=== PATIENT | female | born 1945 | race Caucasian/White ===

== ENCOUNTER 2016-11-28 13:24 | Inpatient (IN) | payer MEDICARE ==
[2016-11-28] MEDS ORDERED: Aspirin Low Dose CHEW TAB* 81 MG PO ONE (14:31)
--- NOTE | 2016-11-28 14:56 | RAD ---
HISTORY: Fall, weakness COMPARISONS: December 15, 2015 VIEWS:1: Single frontal portable view of the chest at 2:35 PM FINDINGS: LINES AND TUBES: A left-sided pacemaker is noted CARDIOMEDIASTINAL SILHOUETTE: The cardiomediastinal silhouette is normal for portable technique. PLEURA: The costophrenic angles are sharp. No pleural abnormalities are noted. LUNG PARENCHYMA: There is hyperinflation. ABDOMEN: The upper abdomen is clear. There is no subphrenic gas. BONES AND SOFT TISSUES: No bone or soft tissue abnormalities are noted. IMPRESSION: COPD. NO ACTIVE CARDIOPULMONARY DISEASE.
[2016-11-28 15:00] LABS: Hematocrit 43 % (35-47); Hemoglobin 14.8 g/dl (12.0-16.0); Mean Corpuscular HGB Conc 34 g/dl (31-36); Mean Corpuscular Hemoglobin 33 pg (27-31); Mean Corpuscular Volume 96 fL (80-97); Mean Platelet Volume 7 um3 (7.4-10.4); Red Blood Count 4.52 10^6/ul (4.0-5.4); Red Cell Distribution Width 16 % (10.5-15); White Blood Count 11.4 10^3/ul (3.5-10.8)
[2016-11-28 15:18] LABS: ALT 20 U/L (7-52); AST 50 U/L (13-39); Albumin 3.4 g/dL (3.2-5.2); Alkaline Phosphatase 66 U/L (34-104); Anion Gap 16 mmol/L (2-11); BUN/Creatinine Ratio 22.3 (8-20); Blood Urea Nitrogen 25 mg/dL (6-24); CO2 Carbon Dioxide 20 mmol/L (22-32); Calcium 9.2 mg/dL (8.6-10.3); Chloride 100 mmol/L (101-111); EGFR African American 61.3 (>60); EGFR Non-African American 47.7 (>60); Globulin 3.5 g/dL (2-4); Glucose 98 mg/dL (70-100); Potassium 3.2 mmol/L (3.5-5.0); Sodium 136 mmol/L (133-145); Total Protein 6.9 g/dL (6.4-8.9); Troponin I 0.01 ng/mL (<0.04)
--- NOTE | 2016-11-28 15:35 | RAD ---
HISTORY: Fall, renal cancer COMPARISONS: MRI dated March 08, 2015 TECHNIQUE: Multiple contiguous axial CT scans were obtained of the head without intravenous contrast. FINDINGS: HEMORRHAGE/INFARCT: There is no hemorrhage or acute infarct. MASSES/SHIFT: There is no mass or shift. EXTRA-AXIAL SPACES: There are no extra-axial fluid collections. SULCI AND VENTRICLES: The sulci and ventricles are normal in size and position for the patient's stated age. CEREBRUM: There is hypoattenuation of the periventricular and subcortical white matter. BRAINSTEM: There are no focal parenchymal abnormalities. CEREBELLUM: There are no focal parenchymal abnormalities. VESSELS: The vessels are grossly normal. PARANASAL SINUSES: The paranasal sinuses are clear. ORBITS: The orbits are unremarkable. BONES AND SOFT TISSUE: No bone or soft tissue abnormalities are noted. OTHER: None IMPRESSION: NO ACUTE INTRACRANIAL PATHOLOGY. CHRONIC SMALL VESSEL ISCHEMIC CHANGES.
[2016-11-28 15:48] LABS: TSH (Thyroid Stimulating Horm) 2.07 mcIU/mL (0.34-5.60)
[2016-11-28 15:55] LABS: Free T4 1.45 ng/dL (0.61-1.12)
[2016-11-28 16:27] LABS: Venous Bicarbonate HCO3 22.6 mmol/L (24-28)
[2016-11-28] MEDS ORDERED: NS 0.9% 1000 ML* 1,000 ML IV ONE (16:28)
[2016-11-28 16:30] LABS: Creatine Kinase 625 U/L (10-223)
[2016-11-28] MEDS ORDERED: NS 0.9% 1000 ML* 1,000 ML IV SCH (17:15)
[2016-11-28 17:20] LABS: Alcohol < 10 mg/dL (<10)
[2016-11-28] MEDS ORDERED: Gabapentin CAP(*) 100 MG PO PRN (17:32)
[2016-11-28 17:59] LABS: Urine Bacteria Absent (Absent); Urine Bilirubin Negative (Negative); Urine Glucose Negative (Negative); Urine Nitrite Negative (Negative)
[2016-11-28] MEDS: NS 0.9% w/ 40 Meq KCL 1000 ML* 1,000 ML IV SCH (19:34)
[2016-11-28] MEDS: oxyCODONE TAB* 5 MG TAB PO PRN (19:58)
[2016-11-29] MEDS: oxyCODONE TAB* 5 MG TAB PO PRN ×2 (03:03→19:03)
[2016-11-29 05:21] LABS: Hematocrit 42 % (35-47); Hemoglobin 13.9 g/dl (12.0-16.0); Mean Corpuscular HGB Conc 33 g/dl (31-36); Mean Corpuscular Hemoglobin 32 pg (27-31); Mean Corpuscular Volume 96 fL (80-97); Mean Platelet Volume 7 um3 (7.4-10.4); Red Blood Count 4.33 10^6/ul (4.0-5.4); Red Cell Distribution Width 16 % (10.5-15)
[2016-11-29 05:38] LABS: BUN/Creatinine Ratio 17.6 (8-20); Calcium 8.5 mg/dL (8.6-10.3); EGFR African American 77.9 (>60); EGFR Non-African American 60.6 (>60); Potassium 3.2 mmol/L (3.5-5.0); Total Bilirubin 0.9 mg/dL (0.2-1.0)
[2016-11-29] MEDS: NS 0.9% w/ 40 Meq KCL 1000 ML* 1,000 ML IV SCH ×2 (06:50→19:56)
[2016-11-29] MEDS: Levothyroxine TAB* 100 MCG TAB PO SCH (06:50)
[2016-11-29] MEDS: amLODIPine TAB* 5 MG PO SCH (09:16)
[2016-11-29] MEDS: Hydroxychloroquine TAB* 200 MG PO SCH (09:16)
[2016-11-29] MEDS: Diltiazem CD CAP* 120 MG PO SCH (09:16)
[2016-11-29] MEDS: Acetaminophen TAB* 325 MG PO PRN (09:16)
--- NOTE | 2016-11-29 09:23 | PN ---
Progress Note - Progress Note Date of Service: 11/29/16 SOAP: Subjective: left rib pain. reports that she has been falling a lot lately and she is not sure why. globally weak. also getting more confused. reports that she fell the night prior to coming in and could not get up and laid there until her nephew came the next afternoon. short of breath for an undetermined amount of time. Objective: Vital Signs Temp Pulse Resp BP Pulse Ox 97.8 F 90 18 135/54 93 11/29/16 04:18 11/29/16 04:18 11/29/16 07:38 11/29/16 04:18 11/29/16 04:25 disheveled appearing in nad poor dentition crackles left base ttp over left posterior and anterior ribs soft ttp luq no le edema globally weak but nonfocal, did not ambulate oriented after significant tries, initially said may 1916 but was able to correct self to november 2016 scattered escoriations from falls Laboratory Results - last 24 hr 11/28/16 11/28/16 11/28/16 14:50 14:50 14:50 WBC 11.4 H RBC 4.52 Hgb 14.8 Hct 43 MCV 96 MCH 33 H MCHC 34 RDW 16 H Plt Count 328 MPV 7 L Neut % (Auto) 87.0 H Lymph % (Auto) 6.2 L [place] % (Auto) 6.1 Eos % (Auto) 0.2 Baso % (Auto) 0.5 Absolute Neuts (auto) 9.9 H Absolute Lymphs (auto) 0.7 L Absolute Monos (auto) 0.7 Absolute Eos (auto) 0 Absolute Basos (auto) 0.1 Absolute Nucleated RBC 0.01 Nucleated RBC % 0.1 VBG pH VBG pCO2 VBG pO2 VBG HCO3 VBG O2 Saturation VBG Base Excess Sodium 136 Potassium 3.2 L Chloride 100 L Carbon Dioxide 20 L Anion Gap 16 H BUN 25 H Creatinine 1.12 H Est GFR ( Amer) 61.3 Est GFR (Non-Af Amer) 47.7 BUN/Creatinine Ratio 22.3 H Glucose 98 Lactic Acid 0.9 Calcium 9.2 Magnesium 2.0 Total Bilirubin 1.00 AST 50 H ALT 20 Alkaline Phosphatase 66 Ammonia Total Creatine Kinase 625 H Troponin I 0.01 Total Protein 6.9 Albumin 3.4 Globulin 3.5 Albumin/Globulin Ratio 1.0 TSH 2.07 Free T4 1.45 H Urine Color Urine Appearance Urine pH Ur Specific [place] Urine Protein Urine Ketones Urine Blood Urine Nitrate Urine Bilirubin Urine Urobilinogen Ur Leukocyte Esterase Urine WBC (Auto) Urine RBC (Auto) Ur Squamous Epith Cells Urine Bacteria Hyaline Casts Urine Glucose Serum Alcohol < 10 11/28/16 11/28/16 11/28/16 16:16 16:25 17:08 WBC RBC Hgb Hct MCV MCH MCHC RDW Plt Count MPV Neut % (Auto) Lymph % (Auto) [place] % (Auto) Eos % (Auto) Baso % (Auto) Absolute Neuts (auto) Absolute Lymphs (auto) Absolute Monos (auto) Absolute Eos (auto) Absolute Basos (auto) Absolute Nucleated RBC Nucleated RBC % VBG pH 7.41 VBG pCO2 35 L VBG pO2 34 L VBG HCO3 22.6 L VBG O2 Saturation 69.3 L VBG Base Excess -1.9 L Sodium Potassium Chloride Carbon Dioxide Anion Gap BUN Creatinine Est GFR ( Amer) Est GFR (Non-Af Amer) BUN/Creatinine Ratio Glucose Lactic Acid Calcium Magnesium Total Bilirubin AST ALT Alkaline Phosphatase Ammonia 29 Total Creatine Kinase Troponin I Total Protein Albumin Globulin Albumin/Globulin Ratio TSH Free T4 Urine Color Yellow Urine Appearance Clear Urine pH 5.0 Ur Specific [place] 1.013 Urine Protein 2+(100 mg/dl) H Urine Ketones 1+ H Urine Blood 1+ H Urine Nitrate Negative Urine Bilirubin Negative Urine Urobilinogen Negative Ur Leukocyte Esterase Negative Urine WBC (Auto) Trace(0-5/hpf) Urine RBC (Auto) 1+(3-5/hpf) H Ur Squamous Epith Cells Present H Urine Bacteria Absent Hyaline Casts Present H Urine Glucose Negative Serum Alcohol 11/28/16 11/29/16 11/29/16 17:31 05:12 05:12 WBC 11.0 H RBC 4.33 Hgb 13.9 Hct 42 MCV 96 MCH 32 H MCHC 33 RDW 16 H Plt Count 307 MPV 7 L Neut % (Auto) 79.1 Lymph % (Auto) 9.6 L [place] % (Auto) 9.7 H Eos % (Auto) 0.6 Baso % (Auto) 1.0 Absolute Neuts (auto) 8.7 H Absolute Lymphs (auto) 1.1 Absolute Monos (auto) 1.1 H Absolute Eos (auto) 0.1 Absolute Basos (auto) 0.1 Absolute Nucleated RBC 0 Nucleated RBC % 0 VBG pH VBG pCO2 VBG pO2 VBG HCO3 VBG O2 Saturation VBG Base Excess Sodium 136 Potassium 3.2 L Chloride 106 Carbon Dioxide 22 Anion Gap 8 BUN 16 Creatinine 0.91 Est GFR ( Amer) 77.9 Est GFR (Non-Af Amer) 60.6 BUN/Creatinine Ratio 17.6 Glucose 100 Lactic Acid Calcium 8.5 L Magnesium Total Bilirubin 0.90 AST 42 H ALT 19 Alkaline Phosphatase 57 Ammonia Total Creatine Kinase Troponin I 0.01 Total Protein 6.0 L Albumin 3.0 L Globulin 3.0 Albumin/Globulin Ratio 1.0 TSH Free T4 Urine Color Urine Appearance Urine pH Ur Specific [place] Urine Protein Urine Ketones Urine Blood Urine Nitrate Urine Bilirubin Urine Urobilinogen Ur Leukocyte Esterase Urine WBC (Auto) Urine RBC (Auto) Ur Squamous Epith Cells Urine Bacteria Hyaline Casts Urine Glucose Serum Alcohol Acetaminophen (Tylenol Tab*) 650 mg PO Q6H PRN PRN Reason: headache/fever Last Admin: 11/29/16 09:16 Dose: 650 mg Amlodipine Besylate (Norvasc Tab*) 2.5 mg PO DAILY [facility] Last Admin: 11/29/16 09:16 Dose: 2.5 mg Diltiazem HCl (Cardizem Cd Cap*) 120 mg PO DAILY [facility] Last Admin: 11/29/16 09:16 Dose: 120 mg Gabapentin (Neurontin Cap(*)) 100 mg PO TID PRN PRN Reason: PAIN Hydroxychloroquine Sulfate (Plaquenil Tab*) 200 mg PO DAILY [facility] Last Admin: 11/29/16 09:16 Dose: 200 mg Potassium Chloride/Sodium Chloride (Ns 0.9% W/ 40 Meq Kcl 1000 Ml*) 1,000 mls @ 100 mls/hr IV PER RATE [facility] Last Admin: 11/29/16 06:50 Dose: 100 mls/hr Levothyroxine Sodium (Synthroid Tab*) 100 mcg PO 0600 [facility] Last Admin: 11/29/16 06:50 Dose: 100 mcg Oxycodone HCl (Roxycodone Tab*) 5 mg PO Q6H PRN PRN Reason: PAIN Last Admin: 11/29/16 03:03 Dose: 5 mg Assessment: 71 yo F w metastatic RCC, apparently due to start nivolumab in the near future, with increase in recent falls of unclear etiology, globally weak. On exam she has crackles at the left base and I suspect may have a PNA +/- rib fracture from her falls. Plan: Falls/AMS: rule out ELEMENTARY SCHOOL TEACHER'S AIDE involvement of tumor with CT with and without--recent PPM, not sure if MRI compatible (will need to premed) PT consult tele to rule out arrhythmia, will discuss with cards if PPM needs to be interrogated (apparently placed over the summer in [place] for falls) LLL crackles, rib pain, fall, sob: CT chest noncontrast now no abx for now hypokalemia: replete IV, mag ok dnr add lovenox dvt prophylaxis
[2016-11-29] MEDS: Enoxaparin(*) 30 MG/0.3 ML SYR SUBCUT SCH (11:12)
[2016-11-29] MEDS ORDERED: diPHENhydraMINE PO* 50 MG PO ONE (11:14)
[2016-11-29] MEDS ORDERED: predniSONE TAB* 5 MG PO SCH (12:00)
--- NOTE | 2016-11-29 15:01 | RAD ---
INDICATION: Evaluate for left-sided pneumonia COMPARISON: CT chest/abdomen/pelvis October 22, 2016 TECHNIQUE: Noncontrast axial source images were obtained from the thoracic inlet to the hemidiaphragms. Coronal and sagittal reconstructed images were acquired. The visualized neck to include the thyroid appear normal. Chest wall: There are no acute abnormalities of the bony thorax or chest wall. There is a right breast mass which has been described previously. There is osteopenia with kyphosis There is pacemaker artifact. There is no supraclavicular, infraclavicular, or axillary lymphadenopathy. Lungs : There are underlying emphysematous changes. There is new bibasilar atelectasis. No focal parenchymal masses are seen. Cardiomediastinal structures: The heart is normal in size. There is no pericardial effusion. There is no evidence of aortic aneurysm or dissection. There are aortic intimal calcifications and there is mild aortic ectasia. The pulmonary vessels appear normal. There is subcarinal and left infrahilar adenopathy better evaluated on the earlier contrast-enhanced examination. There is now believed to be an appreciable interval change. The esophagus appears normal. Pleura : New small, bilateral pleural effusions left greater than right. Other: Limited views the upper abdomen demonstrate a left renal mass and a large hepatic cyst. There is extensive retroperitoneal lymphadenopathy. All findings have been recently documented. IMPRESSION: THERE IS NEW BIBASILAR AIRSPACE DISEASE, LIKELY ATELECTASIS WITH NEW BILATERAL PLEURAL EFFUSIONS LEFT GREATER THAN RIGHT. ADDITIONAL FINDINGS INCLUDE INCIDENTAL ADENOPATHY, RETROPERITONEAL ADENOPATHY, AND A LEFT RENAL MASS ALSO DESCRIBED ON RECENT CT OF THE CHEST/ABDOMEN/PELVIS.
--- NOTE | 2016-11-29 21:28 | CONS ---
CC: Dr. Loni Burgess MD * CARDIOLOGY CONSULT REPORT: DATE OF CONSULT: 11/29/16 HISTORY OF PRESENT ILLNESS: I was asked by Dr. Burgess to see this 71-year- old female patient who was hospitalized after she has been falling a lot. The patient was in [place] back in July, I do have the notes from there. At that time, she was diagnosed with sick sinus syndrome and she had significant hypertension. She underwent permanent pacemaker implantation then. She had an echo done that showed her EF to be 65% and mild pulmonary hypertension at 40 mmHg, mild to moderate mitral insufficiency, mild to moderate tricuspid insufficiency. Cardiology consult was further requested to evaluate if her pacemaker is still functioning normally. Herself, she gets short of breath, which is not new. She gets no active chest pain, no orthopnea, no history of myocardial infarction, no history of coronary artery disease appreciated. She had no nausea, no vomiting, no hematochezia, no abdominal pain, and no syncope. Then, in July, she had a CT that showed her to have a small chronic lacunar infarct in the left basal ganglia. No evidence of acute CVA appreciated. During this hospitalization, she was evaluated actually by a brain CT that was reported to have not used intracranial pathology. She had a chest x-ray that was reported to have COPD, no active cardiopulmonary disease. She gets no fever , no chills, no skin rash, no tremors, no hematochezia, no nausea, no vomiting is appreciated. Her review of all other systems essentially is negative. PAST MEDICAL HISTORY: As above including history of systemic arterial hypertension, which she is on medical treatment for that. She also had some rib pain, although the chest x-ray that was just done recently did not show that. She does have CT chest that was done today and the CT chest reported the patient to have new bibasilar air space disease, likely atelectasis with new bilateral pleural effusion, left greater than the right. There is also retroperitoneal adenopathy and left renal mass as also evaluated. ALLERGIES: She had multiple allergies including IODINATED DIAGNOSTIC AGENTS and CT CONTRAST. MEDICATIONS: Her medications as an inpatient include: 1. Tylenol 650 mg p.o. q.6 hours. 2. Amlodipine 2.5 mg daily. 3. Diltiazem 120 mg daily. 4. Lovenox 30 mg subcu q.24 hours. 5. Plaquenil 200 mg daily. 6. Synthroid 100 mcg daily. 7. Potassium supplements. 8. Prednisone 50 mg p.o. 3 times daily. SOCIAL HISTORY: She gives no history of significant alcohol drinking or drug abuse. PHYSICAL EXAMINATION: On exam, she is awake, alert. She had some mild shortness of breath. Her vitals include a blood pressure of 128/47, pulse is 79 , temperature 97.6. Head and neck exam: Normocephalic, atraumatic. Head, ear , nose, and throat essentially benign. Neck: Supple. JVP is not elevated. No carotid bruits. Chest: Diminished air entry at the bases with some rhonchi bilaterally. Heart: Normal, S1 and S2. No added sounds, no gallops, no rubs. Abdomen: Benign positive bowel sounds. Extremities: No edema, no cyanosis, no clubbing. Skin exam: Normal. Psych: Normal affect and mood. ESTHETICIAN PERMANENT MAKEUP ARTIST: No focal deficits appreciated. DIAGNOSTIC STUDIES/LAB DATA: Her labs showed white blood cell of 11, hemoglobin 13.9, hematocrit 42, and platelets 307. Her sodium 136, potassium is low at 3.2, chloride 106, total CO2 22, BUN 16, creatinine 0.91. Troponin 0.01 and the second one is 0.01. Thyroid, TSH 2.07, free T4 1.45. Her urine showed a +2 protein, +1 blood. There are rbc's. The EKG from today was reported to have sinus rhythm. There is borderline upper limit normal QTc and nonspecific T abnormality. The patient had her pacemaker interrogated today that showed the patient to have a pacer that is functioning normally and sensing the atrium and sensing the ventricle. It is an AA DDD mode with a lower rate of 60, upper rate of 130, normal impendence, normal sensing, good threshold. It is sensing the atrium in 91% of the time, sensing the ventricle in 91% of the time. IMPRESSION: The patient is a 71-year-old female patient with a history of sick sinus syndrome and hospitalization in [place] with multiple falls and syncope and at that time, she underwent permanent pacemaker implantation, who also at that time had an echocardiogram that showed her to have a normal left ventricle systolic function, EF 65%, mild pulmonary hypertension, mild to moderate mitral insufficiency, and mild to moderate tricuspid insufficiency. She has now been hospitalized with recurrent falls of unclear etiology. Her CT scan of the brain did not show any significant intracranial pathology. Her CT of the chest showed her kidney masses and bilateral atelectasis and bilateral pleural effusion. She does have a history of bilateral breast masses and metastatic renal cell cancer in the past as well. It is not immediately clear of the history of multiple falls. The pacemaker interrogation showed the pacemaker to be functioning normally. At the present time, I advised continued medical treatment as per your recommendations. Her echocardiogram is relatively recent from July of this year that showed normal left ventricular systolic function and mitral insufficiency, which is only mild to moderate and just mild pulmonary hypertension. Continue hydration, very important to keep her potassium at least 4.2 or more as you are already doing, continue other medical treatment and management as you are already doing. Thank you very much for asking us to participate in the care of this patient. [id number]/JENNIFER #: [id number] WENDY
[2016-11-29] MEDS: predniSONE TAB* 50 MG PO SCH (22:16)
[2016-11-30] MEDS ORDERED: Albuterol/Ipratropium NEB.SOL* Albuterol 2.5 MG/Ipratropium 0.5 MG 3 ML ONE (00:08)
[2016-11-30] MEDS: Albuterol/Ipratropium NEB.SOL* Albuterol 2.5 MG/Ipratropium 0.5 MG 3 ML INH PRN ×4 (00:09→23:52)
[2016-11-30] MEDS: predniSONE TAB* 50 MG PO SCH ×2 (04:10→10:08)
[2016-11-30 04:59] LABS: Hematocrit 40 % (35-47); Hemoglobin 13.1 g/dl (12.0-16.0); Mean Corpuscular HGB Conc 33 g/dl (31-36); Mean Corpuscular Hemoglobin 32 pg (27-31); Mean Corpuscular Volume 97 fL (80-97); Mean Platelet Volume 7 um3 (7.4-10.4); Red Blood Count 4.11 10^6/ul (4.0-5.4); Red Cell Distribution Width 16 % (10.5-15); White Blood Count 7.9 10^3/ul (3.5-10.8)
[2016-11-30 05:17] LABS: Calcium 7.7 mg/dL (8.6-10.3); EGFR African American 97.4 (>60); EGFR Non-African American 75.7 (>60); Magnesium 1.6 mg/dL (1.9-2.7); Potassium 4.2 mmol/L (3.5-5.0)
[2016-11-30] MEDS: Levothyroxine TAB* 100 MCG TAB PO SCH (05:20)
[2016-11-30] MEDS: NS 0.9% w/ 40 Meq KCL 1000 ML* 1,000 ML IV SCH ×2 (06:04→20:30)
[2016-11-30] MEDS ORDERED: Iodixanol* (CONTRAST) 320 MG/ML 100 ML SDV IV ONE (08:41)
[2016-11-30] MEDS ORDERED: diPHENhydraMINE PO* 50 MG PO ONE (10:00)
[2016-11-30] MEDS: Hydroxychloroquine TAB* 200 MG PO SCH (10:06)
[2016-11-30] MEDS: Diltiazem CD CAP* 120 MG PO SCH (10:06)
[2016-11-30] MEDS: amLODIPine TAB* 5 MG PO SCH (10:06)
[2016-11-30] MEDS: Enoxaparin(*) 30 MG/0.3 ML SYR SUBCUT SCH (10:06)
--- NOTE | 2016-11-30 10:12 | PN ---
Progress Note - Progress Note Date of Service: 11/30/16 SOAP: Subjective: []Reports SOB today, difficulty with minimal exertion. Afraid to get up because of breathing. Left chest pain, maybe better. Live with step son and has been independent of ADLs, makes his meals. Falls have been for 2-3 months. Not eating well. Says she is not working with PT yet. Acetaminophen (Tylenol Tab*) 650 mg PO Q6H PRN PRN Reason: headache/fever Last Admin: 11/29/16 09:16 Dose: 650 mg Albuterol/Ipratropium (Duoneb (Albuterol 2.5 Mg/Ipratropium 0.5 Mg)) 1 neb INH Q4H PRN PRN Reason: SOB/WHEEZING Last Admin: 11/30/16 08:58 Dose: 1 neb Amlodipine Besylate (Norvasc Tab*) 2.5 mg PO DAILY [facility] Last Admin: 11/29/16 09:16 Dose: 2.5 mg Diltiazem HCl (Cardizem Cd Cap*) 120 mg PO DAILY [facility] Last Admin: 11/29/16 09:16 Dose: 120 mg Enoxaparin Sodium (Lovenox(*)) 30 mg SUBCUT Q24H [facility] Last Admin: 11/29/16 11:12 Dose: 30 mg Gabapentin (Neurontin Cap(*)) 100 mg PO TID PRN PRN Reason: PAIN Hydroxychloroquine Sulfate (Plaquenil Tab*) 200 mg PO DAILY [facility] Last Admin: 11/29/16 09:16 Dose: 200 mg Potassium Chloride/Sodium Chloride (Ns 0.9% W/ 40 Meq Kcl 1000 Ml*) 1,000 mls @ 100 mls/hr IV PER RATE [facility] Last Admin: 11/30/16 06:04 Dose: 100 mls/hr Levothyroxine Sodium (Synthroid Tab*) 100 mcg PO 0600 [facility] Last Admin: 11/30/16 05:20 Dose: 100 mcg Oxycodone HCl (Roxycodone Tab*) 5 mg PO Q6H PRN PRN Reason: PAIN Last Admin: 11/29/16 19:03 Dose: 5 mg Objective: [] Vital Signs Temp Pulse Resp BP Pulse Ox 97.4 F 74 18 122/54 99 11/30/16 03:20 11/30/16 09:00 11/30/16 09:00 11/30/16 03:20 11/30/16 09:00 HEENT- Frail appearing. No thrush, poor dentition. Decreased BS, no crackles RRR S1S2 Kyphosis +BS BL BRUCE Oriented x 3 and conversing today. moved legs and arms but did not do full neuro exam or walk her. Laboratory Results - last 24 hr 11/30/16 11/30/16 04:28 04:28 WBC 7.9 RBC 4.11 Hgb 13.1 Hct 40 MCV 97 MCH 32 H MCHC 33 RDW 16 H Plt Count 256 MPV 7 L Neut % (Auto) 95.6 H Lymph % (Auto) 3.4 L [place] % (Auto) 0.7 L Eos % (Auto) 0 Baso % (Auto) 0.3 Absolute Neuts (auto) 7.6 Absolute Lymphs (auto) 0.3 L Absolute Monos (auto) 0.1 Absolute Eos (auto) 0 Absolute Basos (auto) 0 Absolute Nucleated RBC 0 Nucleated RBC % 0 Sodium 135 Potassium 4.2 Chloride 111 Carbon Dioxide 18 L Anion Gap 6 BUN 12 Creatinine 0.75 Est GFR ( Amer) 97.4 Est GFR (Non-Af Amer) 75.7 BUN/Creatinine Ratio 16.0 Glucose 174 H Calcium 7.7 L Magnesium 1.6 L Assessment: 71 yo F w metastatic RCC, apparently due to start nivolumab in the near future, with increase in recent falls of unclear etiology, globally weak and increased SOB Plan: 1. Falls/AMS. Unclear in neurological process or second to SOB and muscle weakness. MRI of brain today. 2. PT evaluation appreciated. Rolling walker on discharge and walk 3x/day in hospital. 3. SOB. PPM appears fine and nothing on telemetry, primary lung disease is possible, side effect of pazopanib (stopped). - Advir 50/250 bid - Stop Norvasc 3. Rib pain seems a little better, CT negative. Follow. 4. Hypokalemia. IV Mag today 5. DNR 6. Full admit today
--- NOTE | 2016-11-30 11:56 | RAD ---
HISTORY: Altered mental status COMPARISONS: Head CT dated November 28, 2016 TECHNIQUE: Multiple contiguous axial CT scans were obtained of the head with and without intravenous contrast. FINDINGS: HEMORRHAGE/INFARCT: There is no hemorrhage or acute infarct. MASSES/SHIFT: There is no mass or shift. EXTRA-AXIAL SPACES: There are no extra-axial fluid collections. SULCI AND VENTRICLES: The sulci and ventricles are normal in size and position for the patient's stated age. CEREBRUM: There is hypoattenuation of the periventricular and subcortical white matter. There is no abnormal enhancement. BRAINSTEM: There are no focal parenchymal abnormalities. CEREBELLUM: There are no focal parenchymal abnormalities. VESSELS: The vessels are grossly normal. PARANASAL SINUSES: The paranasal sinuses are clear. ORBITS: The orbits are unremarkable. BONES AND SOFT TISSUE: No bone or soft tissue abnormalities are noted. OTHER: None IMPRESSION: 1. NO ACUTE INTRACRANIAL PATHOLOGY. 2. CHRONIC SMALL VESSEL ISCHEMIC CHANGES. 3. NO ABNORMAL ENHANCEMENT, VASOGENIC EDEMA, OR SPACE-OCCUPYING LESION TO SUGGEST METASTATIC DISEASE TO THE BRAIN.
[2016-11-30] MEDS: Mometasone/Formoter 200/5 MDI INH SCH (19:27)
[2016-11-30] MEDS: oxyCODONE TAB* 5 MG TAB PO PRN (20:30)
[2016-12-01] MEDS: oxyCODONE TAB* 5 MG TAB PO PRN ×2 (01:38→19:20)
[2016-12-01] MEDS: Albuterol/Ipratropium NEB.SOL* Albuterol 2.5 MG/Ipratropium 0.5 MG 3 ML INH PRN ×3 (04:24→19:36)
[2016-12-01] MEDS: Levothyroxine TAB* 100 MCG TAB PO SCH (05:54)
[2016-12-01] MEDS: NS 0.9% w/ 40 Meq KCL 1000 ML* 1,000 ML IV SCH (06:40)
[2016-12-01] MEDS: Mometasone/Formoter 200/5 MDI INH SCH ×2 (07:50→20:21)
--- NOTE | 2016-12-01 08:14 | RAD ---
HISTORY: Dyspnea COMPARISONS: November 28, 2016 VIEWS:1: Single frontal portable view of the chest at 6 9:00 AM FINDINGS: LINES AND TUBES: A left-sided pacemaker is noted CARDIOMEDIASTINAL SILHOUETTE: The cardiomediastinal silhouette is normal for portable technique. PLEURA: The costophrenic angles are sharp. No pleural abnormalities are noted. LUNG PARENCHYMA: There is a diffuse reticular pattern with indistinct pulmonary vessels. There is hyperinflation. ABDOMEN: The upper abdomen is clear. There is no subphrenic gas. BONES AND SOFT TISSUES: No bone or soft tissue abnormalities are noted. IMPRESSION: 1. COPD. 2. PULMONARY INTERSTITIAL EDEMA.
[2016-12-01] MEDS: Hydroxychloroquine TAB* 200 MG PO SCH (09:31)
[2016-12-01] MEDS: Diltiazem CD CAP* 120 MG PO SCH (09:31)
[2016-12-01] MEDS: Enoxaparin(*) 30 MG/0.3 ML SYR SUBCUT SCH (09:32)
[2016-12-01 09:45] LABS: Hematocrit 40 % (35-47); Hemoglobin 12.7 g/dl (12.0-16.0); Mean Corpuscular HGB Conc 32 g/dl (31-36); Mean Corpuscular Hemoglobin 31 pg (27-31); Mean Corpuscular Volume 98 fL (80-97); Mean Platelet Volume 7 um3 (7.4-10.4); Red Blood Count 4.04 10^6/ul (4.0-5.4); Red Cell Distribution Width 17 % (10.5-15); White Blood Count 17.4 10^3/ul (3.5-10.8)
[2016-12-01 09:58] LABS: Albumin 3.2 g/dL (3.2-5.2); BUN/Creatinine Ratio 16.7 (8-20); Calcium 8.4 mg/dL (8.6-10.3); EGFR African American 78.9 (>60); EGFR Non-African American 61.4 (>60); Globulin 3.4 g/dL (2-4); Magnesium 1.6 mg/dL (1.9-2.7); Total Bilirubin 0.6 mg/dL (0.2-1.0); Total Protein 6.6 g/dL (6.4-8.9)
[2016-12-01 10:08] LABS: Potassium 5.5 mmol/L (3.5-5.0)
[2016-12-01] MEDS ORDERED: NS 0.9% 1000 ML* 1,000 ML IV SCH (12:00)
--- NOTE | 2016-12-01 12:00 | PN ---
Progress Note - Progress Note Date of Service: 12/01/16 SOAP: Subjective: []More confused last night and more confused today. Knew she was in a hospital but wrong name. Did not know year or month. Pain is ok, still SOB. No fevers. Acetaminophen (Tylenol Tab*) 650 mg PO Q6H PRN PRN Reason: headache/fever Last Admin: 11/29/16 09:16 Dose: 650 mg Albuterol/Ipratropium (Duoneb (Albuterol 2.5 Mg/Ipratropium 0.5 Mg)) 1 neb INH Q4H PRN PRN Reason: SOB/WHEEZING Last Admin: 12/01/16 09:41 Dose: 1 neb Diltiazem HCl (Cardizem Cd Cap*) 120 mg PO DAILY [facility] Last Admin: 12/01/16 09:31 Dose: 120 mg Enoxaparin Sodium (Lovenox(*)) 30 mg SUBCUT Q24H [facility] Last Admin: 12/01/16 09:32 Dose: 30 mg Gabapentin (Neurontin Cap(*)) 100 mg PO TID PRN PRN Reason: PAIN Haloperidol (Haldol Tab*) 1 mg PO Q3H PRN PRN Reason: AGITATION Sodium Chloride (Ns 0.9% 1000 Ml*) 1,000 mls @ 250 mls/hr IV .ENTER RATE [facility] Levothyroxine Sodium (Synthroid Tab*) 100 mcg PO 0600 [facility] Last Admin: 12/01/16 05:54 Dose: 100 mcg Mometasone Furoate/Formoterol Fumar (Dulera 200/5 Mdi*) 2 puff INH BID [facility] Last Admin: 12/01/16 07:50 Dose: 2 puff Oxycodone HCl (Roxycodone Tab*) 5 mg PO Q6H PRN PRN Reason: PAIN Last Admin: 12/01/16 01:38 Dose: 5 mg Objective: [] Vital Signs Temp Pulse Resp BP Pulse Ox 97.5 F 85 17 110/49 97 12/01/16 07:13 12/01/16 09:42 12/01/16 09:42 12/01/16 07:13 12/01/16 09:42 HEENT - No acute distress, mucus moist and no lesions. Decrease BS, no wheezing RRR S1S2 +BS Kyphosis No BRUCE Neuro - as above, partial orientation. Assessment: 71 yo F w metastatic RCC, apparently due to start nivolumab in the near future, with increase in recent falls of unclear etiology, globally weak and increased SOB. Blood work notable for decreased CO2 Plan: 1. Falls/AMS. At this time delerium from hospitalization. BIOMEDICAL EQUIPMENT SPECIALIST immaging negative. - Haldol for orientation, avoid benzo and anti cholenergic medication. 2. SOB. PPM appears fine and nothing on telemetry, primary lung disease is possible, side effect of pazopanib (stopped). - Advir 50/250 bid 3. Rib pain seems a little better, CT negative. Seems to be improving. 4. FEN. Increased K, will re-check this afternoon. She has good UO. 5. DNR 6. Metbolic acidosis is unclear, may be hyperventilating.
[2016-12-01] MEDS ORDERED: Magnesium Sulfate 2 GM IV* 2 GM/50 ML BAG IVPB ONE (12:01)
[2016-12-01] MEDS: Haloperidol TAB* 1 MG PO PRN (13:36)
[2016-12-01 17:37] LABS: BUN/Creatinine Ratio 16.7 (8-20); Calcium 7.9 mg/dL (8.6-10.3); EGFR African American 68.3 (>60); EGFR Non-African American 53.1 (>60); Potassium 5.2 mmol/L (3.5-5.0)
[2016-12-01] MEDS ORDERED: NS 0.9% 500 ML BAG* 500 ML IV ONE (19:00)
[2016-12-02] MEDS: Haloperidol TAB* 1 MG PO PRN ×5 (00:02→20:36)
[2016-12-02] MEDS: Albuterol/Ipratropium NEB.SOL* Albuterol 2.5 MG/Ipratropium 0.5 MG 3 ML INH PRN ×6 (00:09→20:39)
[2016-12-02] MEDS: Levothyroxine TAB* 100 MCG TAB PO SCH (05:18)
[2016-12-02 05:30] LABS: Hematocrit 35 % (35-47); Hemoglobin 11.4 g/dl (12.0-16.0); Mean Corpuscular HGB Conc 32 g/dl (31-36); Mean Corpuscular Hemoglobin 32 pg (27-31); Mean Corpuscular Volume 100 fL (80-97); Mean Platelet Volume 8 um3 (7.4-10.4); Red Blood Count 3.56 10^6/ul (4.0-5.4); Red Cell Distribution Width 17 % (10.5-15); White Blood Count 11.2 10^3/ul (3.5-10.8)
[2016-12-02 05:47] LABS: BUN/Creatinine Ratio 18.2 (8-20); Calcium 7.8 mg/dL (8.6-10.3); Magnesium 2.4 mg/dL (1.9-2.7); Potassium 4.9 mmol/L (3.5-5.0)
[2016-12-02] MEDS: Mometasone/Formoter 200/5 MDI INH SCH ×2 (08:14→20:52)
[2016-12-02] MEDS ORDERED: NS 0.9% 1000 ML* 1,000 ML IV SCH (08:15)
[2016-12-02] MEDS ORDERED: NS 0.9% 1000 ML* 1,000 ML IV ONE (09:00)
[2016-12-02] MEDS: Diltiazem CD CAP* 120 MG PO SCH (09:07)
[2016-12-02] MEDS: Omeprazole CAP* 20 MG PO SCH (09:07)
[2016-12-02] MEDS: oxyCODONE TAB* 5 MG TAB PO PRN ×2 (09:07→16:33)
[2016-12-02] MEDS: Enoxaparin(*) 30 MG/0.3 ML SYR SUBCUT SCH (10:00)
--- NOTE | 2016-12-02 10:41 | PN ---
Progress Note - Progress Note Date of Service: 12/02/16 SOAP: Subjective: []Better today. Oriented to [facility] and month. Had year wrong. Has some pain, comes and goes, epigastric. [place] very SOB last night, not moving around much. Not eating much. Acetaminophen (Tylenol Tab*) 650 mg PO Q6H PRN PRN Reason: headache/fever Last Admin: 11/29/16 09:16 Dose: 650 mg Albuterol/Ipratropium (Duoneb (Albuterol 2.5 Mg/Ipratropium 0.5 Mg)) 1 neb INH Q4H PRN PRN Reason: SOB/WHEEZING Last Admin: 12/02/16 08:13 Dose: 1 neb Diltiazem HCl (Cardizem Cd Cap*) 120 mg PO DAILY [facility] Last Admin: 12/02/16 09:07 Dose: 120 mg Enoxaparin Sodium (Lovenox(*)) 30 mg SUBCUT Q24H [facility] Last Admin: 12/02/16 10:00 Dose: 30 mg Gabapentin (Neurontin Cap(*)) 100 mg PO TID PRN PRN Reason: PAIN Last Admin: 12/01/16 13:35 Dose: 100 mg Haloperidol (Haldol Tab*) 1 mg PO Q3H PRN PRN Reason: AGITATION Last Admin: 12/02/16 09:07 Dose: 1 mg Sodium Chloride (Ns 0.9% 1000 Ml*) 1,000 mls @ 75 mls/hr IV ONCE ONE Stop: 12/02/16 22:19 Last Admin: 12/02/16 09:06 Dose: 75 mls/hr Levothyroxine Sodium (Synthroid Tab*) 100 mcg PO 0600 [facility] Last Admin: 12/02/16 05:18 Dose: 100 mcg Mometasone Furoate/Formoterol Fumar (Dulera 200/5 Mdi*) 2 puff INH BID [facility] Last Admin: 12/02/16 08:14 Dose: 2 puff Omeprazole (Prilosec Cap*) 20 mg PO DAILY [facility] Last Admin: 12/02/16 09:07 Dose: 20 mg Oxycodone HCl (Roxycodone Tab*) 5 mg PO Q6H PRN PRN Reason: PAIN Last Admin: 12/02/16 09:07 Dose: 5 mg Objective: [] Vital Signs Temp Pulse Resp BP Pulse Ox 97.8 F 92 19 112/39 99 12/02/16 08:01 12/02/16 08:01 12/02/16 09:07 12/02/16 08:01 12/02/16 08:01 HEENT - No acute distress, mucus moist and no lesions. Decrease BS, no wheezing RRR S1S2 +BS Kyphosis No BRUCE Neuro - as above, partial orientation. Assessment: 71 yo F w metastatic RCC, apparently due to start nivolumab in the near future, with increase in recent falls of unclear etiology, globally weak and increased SOB. Slow improvement. Plan: 1. Falls/AMS. At this time delerium from hospitalization. RETURN AGENT immaging negative. - Haldol for orientation, avoid benzo and anti cholenergic medication. 2. SOB. Still on 6 L NC - Advir 50/250 bid - Will hydrate today and if breathing not improved, CTA tomorrow. On Lovenox SQ 3. Epigastric pain, PPI. 4. FEN. Low O2 improving and K comming down. IVF today and re-check in am. 5. DNR
[2016-12-02] MEDS: Acetaminophen TAB* 325 MG PO PRN (16:32)
[2016-12-03] MEDS: Morphine INJ* 2 MG/ML 1 ML SYRINGE IV PRN ×3 (00:55→19:01)
[2016-12-03] MEDS: Haloperidol TAB* 1 MG PO PRN (00:59)
[2016-12-03] MEDS: Levothyroxine TAB* 100 MCG TAB PO SCH (06:18)
[2016-12-03] MEDS: Omeprazole CAP* 20 MG PO SCH (07:37)
[2016-12-03] MEDS: Diltiazem CD CAP* 120 MG PO SCH (07:37)
[2016-12-03] MEDS: Albuterol/Ipratropium NEB.SOL* Albuterol 2.5 MG/Ipratropium 0.5 MG 3 ML INH PRN (09:19)
[2016-12-03] MEDS: Mometasone/Formoter 200/5 MDI INH SCH ×2 (09:22→20:46)
[2016-12-03] MEDS: Enoxaparin(*) 30 MG/0.3 ML SYR SUBCUT SCH (12:14)
[2016-12-03 13:55] LABS: Hematocrit 42 % (35-47); Hemoglobin 13.7 g/dl (12.0-16.0); Mean Corpuscular HGB Conc 32 g/dl (31-36); Mean Corpuscular Hemoglobin 32 pg (27-31); Mean Corpuscular Volume 97 fL (80-97); Mean Platelet Volume 7 um3 (7.4-10.4); Red Blood Count 4.35 10^6/ul (4.0-5.4); Red Cell Distribution Width 16 % (10.5-15); White Blood Count 13.1 10^3/ul (3.5-10.8)
[2016-12-03 14:10] LABS: Albumin 3.1 g/dL (3.2-5.2); Calcium 8.4 mg/dL (8.6-10.3); EGFR African American 93.1 (>60); EGFR Non-African American 72.4 (>60); Globulin 3.1 g/dL (2-4); Potassium 3.9 mmol/L (3.5-5.0); Total Bilirubin 0.7 mg/dL (0.2-1.0); Total Protein 6.2 g/dL (6.4-8.9)
[2016-12-03 14:31] LABS: TSH (Thyroid Stimulating Horm) 3.75 mcIU/mL (0.34-5.60)
[2016-12-03] MEDS: predniSONE TAB* 50 MG PO SCH (19:02)
[2016-12-04] MEDS: predniSONE TAB* 50 MG PO SCH ×2 (01:58→09:13)
[2016-12-04] MEDS: Morphine INJ* 2 MG/ML 1 ML SYRINGE IV PRN (05:17)
[2016-12-04 05:34] LABS: BUN/Creatinine Ratio 9.1 (8-20); Calcium 8.1 mg/dL (8.6-10.3); EGFR African American 112.9 (>60); EGFR Non-African American 87.8 (>60); Potassium 3.9 mmol/L (3.5-5.0)
[2016-12-04] MEDS: Levothyroxine TAB* 100 MCG TAB PO SCH (05:59)
[2016-12-04] MEDS ORDERED: diPHENhydraMINE PO* 50 MG PO ONE (08:00)
--- NOTE | 2016-12-04 08:25 | RAD ---
INDICATION: Left hip injury. COMPARISON: Comparison is made with a prior CT of the abdomen and pelvis from October 22, 2016. TECHNIQUE: An AP view of the pelvis and frontal and lateral views of the left hip were obtained. FINDINGS: The bones are in normal alignment. No fracture is seen. There is a lucent lesion present within the right iliac crest which is noted on the patient's recent CT of the abdomen from October 22, 2016. There is mild bilateral osteoarthritic change in the hips. There is a coarse calcification which projects lateral to the left iliac crest. IMPRESSION: NO EVIDENCE FOR FRACTURE, IF THE PATIENT'S SYMPTOMS PERSIST RECOMMEND FOLLOW-UP IMAGING.
[2016-12-04] MEDS: Diltiazem CD CAP* 120 MG PO SCH (09:13)
[2016-12-04] MEDS: Enoxaparin(*) 30 MG/0.3 ML SYR SUBCUT SCH (09:14)
[2016-12-04] MEDS: Omeprazole CAP* 20 MG PO SCH (09:14)
[2016-12-04] MEDS ORDERED: Iohexol 350* (CONTRAST) 500 ML MDV IV ONE (09:17)
[2016-12-04] MEDS: Mometasone/Formoter 200/5 MDI INH SCH ×2 (10:12→20:28)
--- NOTE | 2016-12-04 11:24 | RAD ---
HISTORY: Shortness of breath, history of metastatic renal cancer COMPARISONS: CT dated November 29, 2016 TECHNIQUE: Multiple contiguous axial CT scans of the chest were obtained after the administration of nonionic intravenous contrast, timed to the pulmonary arterial phase of contrast enhancement.. Coronal and sagittal multiplanar reformations are also submitted for review. FINDINGS: NECK AND THYROID: The lower neck and thyroid are unremarkable. CHEST WALL: There is no lower cervical, axillary, or supraclavicular lymphadenopathy by size criteria. There is a left-sided chest port. There is extensive chest wall edema HEART AND PERICARDIUM: The heart is unremarkable. AORTA AND PULMONARY VASCULATURE: There is no pulmonary arterial filling defect to suggest pulmonary embolism. There is no linear filling defect within the aorta to suggest aortic dissection. MEDIASTINUM: There are enlarged mediastinal lymph nodes. CAR: There are enlarged hilar lymph nodes bilaterally. AIRWAY AND ESOPHAGUS: The airway is unremarkable, without endobronchial filling defect. The esophagus is grossly normal. LUNG PARENCHYMA: There is compressive atelectasis of the lung bases bilaterally, greater on the left than on the right. There is diffuse emphysematous change. PLEURA: There are small bilateral pleural effusions UPPER ABDOMEN: There is extensive lymphadenopathy of the upper abdomen. A left renal mass is noted. A hepatic cyst is noted. BONES AND SOFT TISSUES: Mild degenerative changes are noted. Bilateral breast nodules are noted OTHER: None. IMPRESSION: 1. NO PULMONARY ARTERIAL FILLING DEFECT TO SUGGEST PULMONARY EMBOLISM. 2. AGAIN NOTED IS HILAR AND MEDIASTINAL LYMPHADENOPATHY. 3. SMALL BILATERAL PLEURAL EFFUSIONS WITH ASSOCIATED COMPRESSIVE ATELECTASIS. 4. EMPHYSEMA. 5. LEFT RENAL MASS. 6. UPPER ABDOMINAL LYMPHADENOPATHY. 7. BILATERAL BREAST NODULES..
[2016-12-05] MEDS: Levothyroxine TAB* 100 MCG TAB PO SCH (06:17)
[2016-12-05] MEDS: Diltiazem CD CAP* 120 MG PO SCH (07:57)
[2016-12-05] MEDS: Omeprazole CAP* 20 MG PO SCH (07:57)
[2016-12-05] MEDS: Mometasone/Formoter 200/5 MDI INH SCH ×2 (09:11→20:56)
[2016-12-05] MEDS: Enoxaparin(*) 30 MG/0.3 ML SYR SUBCUT SCH (10:02)
[2016-12-05] MEDS ORDERED: NS 0.9% 1000 ML* 1,000 ML IV ONE (11:28)
--- NOTE | 2016-12-05 12:40 | PN ---
Progress Note - Progress Note Date of Service: 12/05/16 SOAP: Subjective: []Examined this AM @ approx. 0950. Feeling well per report. Denies issues although says she has pain in her left foot. Aware of admission r/t fall. Admits she may need help at d/c. 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 Denied BRADSHAW. Right eye feels a little "crusty." Told nursing and PT that she was lightheaded. Medications: Acetaminophen (Tylenol Tab*) 650 mg PO Q6H PRN PRN Reason: headache/fever Last Admin: 12/02/16 16:32 Dose: 650 mg Albuterol/Ipratropium (Duoneb (Albuterol 2.5 Mg/Ipratropium 0.5 Mg)) 1 neb INH Q4H PRN PRN Reason: SOB/WHEEZING Last Admin: 12/03/16 09:19 Dose: 1 neb Diltiazem HCl (Cardizem Cd Cap*) 120 mg PO DAILY [facility] Last Admin: 12/05/16 07:57 Dose: 120 mg Enoxaparin Sodium (Lovenox(*)) 30 mg SUBCUT Q24H [facility] Last Admin: 12/05/16 10:02 Dose: 30 mg Gabapentin (Neurontin Cap(*)) 100 mg PO TID PRN PRN Reason: PAIN Last Admin: 12/01/16 13:35 Dose: 100 mg Haloperidol (Haldol Tab*) 1 mg PO Q3H PRN PRN Reason: AGITATION Last Admin: 12/03/16 00:59 Dose: 1 mg Levothyroxine Sodium (Synthroid Tab*) 100 mcg PO 0600 [facility] Last Admin: 12/05/16 06:17 Dose: 100 mcg Mometasone Furoate/Formoterol Fumar (Dulera 200/5 Mdi*) 2 puff INH BID [facility] Last Admin: 12/05/16 09:11 Dose: 2 puff Morphine Sulfate (Morphine Oral Concentrate*) 5 mg PO Q2H PRN PRN Reason: Pain/dyspnea Omeprazole (Prilosec Cap*) 20 mg PO DAILY [facility] Last Admin: 12/05/16 07:57 Dose: 20 mg Oxycodone HCl (Roxycodone Tab*) 5 mg PO Q6H PRN PRN Reason: PAIN Last Admin: 08/20/17 16:33 Dose: 5 mg Objective: [] Vital Signs Temp Pulse Resp BP Pulse Ox 98.7 F 91 16 154/59 94 12/05/16 07:46 12/05/16 09:13 12/05/16 09:13 12/05/16 07:46 12/05/16 09:13 Alert and oriented to self, year, and situation. Difficulty with specific date. Oriented to situation and involved in plan of care discussion. HRR, S1S2 present, tele: SR without ectopy LS dim. to bases, but otherwise clear with even and non-labored resp. at rest +BS, abd. soft and non-tender +PP=bilat. with +1 edema to ankles L slightly >R -- no tenderness to calf and no swelling beyond ankle Assessment: []71 yo female with metastatic renal cell carcinoma with recent progression and course complicated by multiple falls for unclear reasons. Admitted to the hospital after being found unresponsive (which she states occurred after a fall though is not clear about specifics) and work-up essentially negative beyond mixed acid-base disorder (likely r/t known RCC). At this point she is stable, but is not safe for d/c home independently and she is agreeable to rehab. Plan: []1. Hyponatremia: 1 L NS bolus today, recheck labs in AM 2. SOB: neg. resp. work-up, likely r/t acid base balance, follow 3. Weakness and falls: PT and OT eval, goal of d/c to rehab Case Management Eval. for rehab, goal of d/c in next day or two
[2016-12-06] MEDS: Morphine ORAL CONCENTRATE* 5 MG/0.25 ML ORAL.SYRIN PO PRN (01:31)
[2016-12-06] MEDS: Levothyroxine TAB* 100 MCG TAB PO SCH (05:34)
[2016-12-06 06:09] LABS: BUN/Creatinine Ratio 11.9 (8-20); Calcium 7.9 mg/dL (8.6-10.3); EGFR African American 128.5 (>60); EGFR Non-African American 99.9 (>60)
[2016-12-06 06:12] LABS: Potassium 2.7 mmol/L (3.5-5.0)
[2016-12-06] MEDS: KCL 20 MEQ/100 ML IVPREMIX* 20 MEQ/100 ML BAG IV SCH ×3 (07:02→09:19)
[2016-12-06 07:51] LABS: Magnesium 1.7 mg/dL (1.9-2.7)
[2016-12-06] MEDS: Mometasone/Formoter 200/5 MDI INH SCH ×2 (08:38→20:45)
[2016-12-06] MEDS: Potassium Chlor TAB* 20 MEQ TAB.ER PO SCH (09:18)
[2016-12-06] MEDS: Diltiazem CD CAP* 120 MG PO SCH (09:18)
[2016-12-06] MEDS: Omeprazole CAP* 20 MG PO SCH (09:18)
[2016-12-06] MEDS: Enoxaparin(*) 30 MG/0.3 ML SYR SUBCUT SCH (09:19)
--- NOTE | 2016-12-06 11:04 | PN ---
Progress Note - Progress Note Date of Service: 12/06/16 SOAP: Subjective: []Better today. Breathing improved and near baseline. Still weak, not walking and does not feel can go home. Acetaminophen (Tylenol Tab*) 650 mg PO Q6H PRN PRN Reason: headache/fever Last Admin: 12/02/16 16:32 Dose: 650 mg Albuterol/Ipratropium (Duoneb (Albuterol 2.5 Mg/Ipratropium 0.5 Mg)) 1 neb INH Q4H PRN PRN Reason: SOB/WHEEZING Last Admin: 12/03/16 09:19 Dose: 1 neb Diltiazem HCl (Cardizem Cd Cap*) 120 mg PO DAILY [facility] Last Admin: 12/06/16 09:18 Dose: 120 mg Enoxaparin Sodium (Lovenox(*)) 30 mg SUBCUT Q24H [facility] Last Admin: 12/06/16 09:19 Dose: 30 mg Gabapentin (Neurontin Cap(*)) 100 mg PO TID PRN PRN Reason: PAIN Last Admin: 12/01/16 13:35 Dose: 100 mg Haloperidol (Haldol Tab*) 1 mg PO Q3H PRN PRN Reason: AGITATION Last Admin: 12/03/16 00:59 Dose: 1 mg Potassium Chloride (Potassium Chloride 20 Meq/100 Ml Ivpremix*) 20 meq in 100 mls @ 50 mls/hr IV Q2H [facility] Stop: 12/06/16 10:59 Last Admin: 12/06/16 09:19 Dose: 50 mls/hr Magnesium Sulfate 3 gm/ Sodium (Chloride) 106 mls @ 53 mls/hr IVPB ONCE ONE Stop: 12/06/16 12:50 Levothyroxine Sodium (Synthroid Tab*) 100 mcg PO 0600 [facility] Last Admin: 12/06/16 05:34 Dose: 100 mcg Mometasone Furoate/Formoterol Fumar (Dulera 200/5 Mdi*) 2 puff INH BID [facility] Last Admin: 12/06/16 08:38 Dose: 2 puff Morphine Sulfate (Morphine Oral Concentrate*) 5 mg PO Q2H PRN PRN Reason: Pain/dyspnea Last Admin: 12/06/16 01:31 Dose: 5 mg Omeprazole (Prilosec Cap*) 20 mg PO DAILY [facility] Last Admin: 12/06/16 09:18 Dose: 20 mg Oxycodone HCl (Roxycodone Tab*) 5 mg PO Q6H PRN PRN Reason: PAIN Last Admin: 12/02/16 16:33 Dose: 5 mg Potassium Chloride (Klor Con Er Tab*) 40 meq PO DAILY [facility] Last Admin: 12/06/16 09:18 Dose: 40 meq Objective: [] Vital Signs Temp Pulse Resp BP Pulse Ox 97.5 F 85 18 166/60 96 12/06/16 08:04 12/06/16 08:04 12/06/16 08:04 12/06/16 08:04 12/06/16 08:04 Alert and oriented to self, year, month, and situation. Able to say she is going to [facility] today. HRR, S1S2 present, tele: SR, no alarms. LS dim, otherwise clear with even and non-labored resp. at rest +BS, abd. soft and non-tendern.n. +1 edema to ankles L slightly K - 2.7, Mg 1.7, CBC stable Assessment: []71 yo female with metastatic renal cell carcinoma with recent progression and course complicated by multiple falls for unclear reasons. Admitted to the hospital after being found unresponsive (which she states occurred after a fall though is not clear about specifics) and work-up essentially negative beyond mixed acid-base disorder (likely r/t known RCC). Hospital course delayed for persistent SOB, now improved. Plan: []1. Hyponatremia. Persistent, possible SIADH from lung disease. Stable and will follow. 2. Potassium. IV today and IV Mg. Will check at 1400 and if improved can d/c sravani oral Mg and K. Will need re-check tomorrow. 2. SOB. Improved and could have been from acidosis, hyperventilation. 3. Weakness and falls. NH with rehab today if labs are in line. 4. Hold cancer care until at home and stronger. 5. Follow up Dr. Hunt in next two weeks.
--- NOTE | 2016-12-06 11:10 | PN ---
Progress Note - Progress Note Date of Service: 12/06/16 SOAP: ADDENDUM: CHANGE IN HOME MEDICATION: INCREASE MAG OXIDE TO 800 MG BID STOP HCTZ []
[2016-12-06 14:16] LABS: BUN/Creatinine Ratio 12.5 (8-20); Blood Urea Nitrogen 9 mg/dL (6-24); CO2 Carbon Dioxide 20 mmol/L (22-32); Calcium 8.1 mg/dL (8.6-10.3); Chloride 99 mmol/L (101-111); EGFR African American 102.1 (>60); EGFR Non-African American 79.4 (>60); Glucose 117 mg/dL (70-100); Sodium 128 mmol/L (133-145)
[2016-12-06 14:23] LABS: Anion Gap 9 mmol/L (2-11)
--- NOTE | 2016-12-06 15:08 | ED ---
Asael Pabon Angela, scribed for Randy Reis MD on 11/28/16 at 1529 . Lower Extremity - HPI Summary HPI Summary: This pt is a 71 y/o female [facility] c/o repeated falls due to knees giving out x3 days. 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 Pt reports not feeling well since she had a pacemaker placed in October in [place]. She states it has been hard to stand up from the floor. She endorses light- headedness, weakness, dizziness. Pt denies abd pain, leg swelling. She lives by herself. Pt is a poor historian. - History of Current Complaint Chief Complaint: EDExtremityLower Stated Complaint: FALL Time Seen by Provider: 11/28/16 14:25 Hx Obtained From: Patient Mechanism Of Injury: Fall From A Standing Position Pain Intensity: 0 Associated Signs And Symptoms: Positive: Weakness, Dizziness. Negative: Fever, Abdominal Pain Aggravating Factor(s): Nothing Alleviating Factor(s): Other - Allergies/Home Medications Allergies/Adverse Reactions: Allergies Allergy/AdvReac Type Severity Reaction Status Date / Time Iodinated Diagnostic Agents Allergy Rash And Verified 11/28/16 14:06 Itching Prochlorperazine AdvReac Nausea Verified 11/28/16 14:06 [From Compazine] CT CONTRAST Allergy Rash And Uncoded 10/22/16 09:43 Itching Home Medications: Home Medications Albuterol Sulfate [Proair Respiclick] 1 puff INH BID PRN 11/28/16 [History Confirmed 11/28/16] Hydrochlorothiazide TAB* [Hydrodiuril TAB*] 12.5 mg PO DAILY 11/28/16 [History Confirmed 11/28/16] Potassium Chlor TAB* [Klor Con ER TAB*] 20 meq PO BID 11/28/16 [History Confirmed 11/28/16] PMH/Surg Hx/FS Hx/Imm Hx Endocrine/Hematology History: Reports: Hx Blood Transfusions, Hx Systemic Lupus Erythematosus, Hx Thyroid Disease - hypothyroidism, Hx Anemia Denies: Hx Anticoagulant Therapy, Hx Blood Disorders, Hx Bone Marrow Disease , Hx Diabetes, Hx Sickle Cell Disease, Hx Unexplained Bleeding, Other Endocrine/ Hematological Disorders Cardiovascular History: Reports: Hx Angina, Hx Hypertension Denies: Hx Congestive Heart Failure, Hx Pacemaker/ICD Respiratory History: Reports: Hx Pneumonia, Other Respiratory Problems/ Disorders - RENAL AND LUNG CANCER, ON CHEMO Denies: Hx Asthma, Hx Chronic Obstructive Pulmonary Disease (COPD) GI History: Reports: Hx Hiatal Hernia History: Denies: Hx Renal Disease Musculoskeletal History: Reports: Hx Arthritis Sensory History: Reports: Hx Cataracts, Hx Contacts or Glasses Denies: Hx Glaucoma, Hx Macular Degeneration, Hx Deafness, Hx Hearing Aid Opthamlomology History: Reports: Hx Cataracts, Hx Contacts or Glasses Denies: Hx Glaucoma, Hx Macular Degeneration Neurological History: Reports: Hx Migraine Denies: Hx Dementia, Hx Seizures, Other Neuro Impairments/Disorders Psychiatric History: Reports: Hx Anxiety, Hx Depression Denies: Hx Panic Disorder, Hx Substance Abuse - Cancer History Cancer Type, Location and Year: RENAL CANCER - W/ METS Hx Chemotherapy: Yes - current Hx Radiation Therapy: No - Surgical History Surgery Procedure, Year, and Place: HYSTERECTOMY, APPENDECTOMY;VEINOUS LIGATION ; TONSILECTOMY, PACEMAKER Hx Anesthesia Reactions: No Infectious Disease History: No Infectious Disease History: Denies: Hx Clostridium Difficile, Hx Hepatitis, Hx Human Immunodeficiency Virus (HIV), Hx of Known/Suspected MRSA, Hx Shingles, Hx Tuberculosis, Hx Known/ Suspected VRE, Hx Known/Suspected VRSA, Traveled Outside the [place] in Last 30 Days - Family History Known Family History: Positive: Cardiac Disease - Social History Alcohol Use: None Substance Use Type: Reports: None Hx Tobacco Use: No Smoking Status (MU): Former Smoker Type: Cigarettes Amount Used/How Often: 40 YRS Length of Time of Smoking/Using Tobacco: 40 YRS Have You Smoked in the Last Year: No Review of Systems Negative: Fever, Chills Negative: Erythema Negative: Sore Throat Positive: Chest Pain - now resolved. Negative: Shortness Of Breath, Cough Negative: Abdominal Pain, Vomiting, Nausea Negative: dysuria, hematuria Negative: Myalgia, Edema Negative: Rash Neurological: Other - POSITIVE: Dizziness, Light-headedness Positive: Weakness All Other Systems Reviewed And Are Negative: Yes Physical Exam - Summary Physical Exam Summary: Constitutional: Well-developed, Well-nourished, Alert. (-) Distressed Skin: Warm, Dry HENT: Normocephalic; Atraumatic. Dry mucous membranes. Eyes: Conjunctiva normal Neck: Musculoskeletal ROM normal neck. (-) JVD, (-) Stridor, (-) Tracheal deviation Cardio: Rhythm regular, rate normal, Heart sounds normal; Intact distal pulses; The pedal pulses are 2+ and symmetric. Radial pulses are 2+ and symmetric. (-) Murmur Pulmonary/Chest wall: Effort normal. (-) Respiratory distress, (-) Wheezes, (-) Rales Abd: Soft, (-) Tenderness, (-) Distension, (-) Guarding, (-) Rebound Musculoskeletal: (-) Edema Lymph: (-) Cervical adenopathy Neuro: Alert, Oriented x3 Psych: Mood and affect Normal Triage Information Reviewed: Yes Vital Signs On Initial Exam: Initial Vitals Resp 0 11/28/16 13:36 Vital Signs Reviewed: Yes Diagnostics - Vital Signs Vital Signs Temp Pulse Resp BP Pulse Ox 11/28/16 13:52 97.7 F 94 16 126/52 96 11/28/16 13:46 97.7 F 95 18 126/52 97 11/28/16 13:41 15 126/52 11/28/16 13:36 0 - Laboratory Lab Results: Lab Results 11/28/16 11/28/16 11/28/16 Range/Units 14:50 14:50 14:50 WBC 11.4 H (3.5-10.8) 10^3/ul RBC 4.52 (4.0-5.4) 10^6/ul Hgb 14.8 (12.0-16.0) g/dl Hct 43 (35-47) % MCV 96 (80-97) fL MCH 33 H (27-31) pg MCHC 34 (31-36) g/dl RDW 16 H (10.5-15) % Plt Count 328 (150-450) 10^3/ul MPV 7 L (7.4-10.4) um3 Neut % (Auto) 87.0 H (38-83) % Lymph % (Auto) 6.2 L (25-47) % Guthrie % (Auto) 6.1 (1-9) % Eos % (Auto) 0.2 (0-6) % Baso % (Auto) 0.5 (0-2) % Absolute Neuts (auto) 9.9 H (1.5-7.7) 10^3/ul Absolute Lymphs (auto) 0.7 L (1.0-4.8) 10^3/ul Absolute Monos (auto) 0.7 (0-0.8) 10^3/ul Absolute Eos (auto) 0 (0-0.6) 10^3/ul Absolute Basos (auto) 0.1 (0-0.2) 10^3/ul Absolute Nucleated RBC 0.01 10^3/ul Nucleated RBC % 0.1 Sodium 136 (133-145) mmol/L Potassium 3.2 L (3.5-5.0) mmol/L Chloride 100 L (101-111) mmol/L Carbon Dioxide 20 L (22-32) mmol/L Anion Gap 16 H (2-11) mmol/L BUN 25 H (6-24) mg/dL Creatinine 1.12 H (0.51-0.95) mg/dL Est GFR ( Amer) 61.3 (>60) Est GFR (Non-Af Amer) 47.7 (>60) BUN/Creatinine Ratio 22.3 H (8-20) Glucose 98 (70-100) mg/dL Lactic Acid 0.9 (0.5-2.0) mmol/L Calcium 9.2 (8.6-10.3) mg/dL Total Bilirubin 1.00 (0.2-1.0) mg/dL AST 50 H (13-39) U/L ALT 20 (7-52) U/L Alkaline Phosphatase 66 (34-104) U/L Troponin I 0.01 (<0.04) ng/mL Total Protein 6.9 (6.4-8.9) g/dL Albumin 3.4 (3.2-5.2) g/dL Globulin 3.5 (2-4) g/dL Albumin/Globulin Ratio 1.0 (1-3) TSH Pending Free T4 Pending Result Diagrams: 11/28/16 14:50 11/28/16 14:50 Lab Statement: Any lab studies that have been ordered have been reviewed, and results considered in the medical decision making process. - Radiology Chest XR Xray Interpretation: Positive (See Comments) - IMPRESSION: COPD. No active cardiopulmonary disease. Radiology Interpretation Completed By: Radiologist - CT CT Brain CT Interpretation: Positive (See Comments) - IMPRESSION: No acute intracranial pathology. Chronic small vessel ischemic changes. CT Interpretation Completed By: Radiologist - EKG 14:47 Cardiac Rate: NL - 94 bpm EKG Rhythm: Sinus Rhythm Ectopy: None EKG Interpretation: No STEMI Lower Extremity Course/Dx - Diagnoses Provider Diagnoses: Dehydration, Delirium - Physician Notifications Discussed Care Of Patient With: Jatinder Hunt Time Discussed With Above Provider: 16:32 Instructed by Provider To: Other - Discussed pt care with Dr. Hunt. Oncology will come see the pt in room. Discharge - Discharge Plan Condition: Stable Disposition: ADMITTED TO [facility] documentation as recorded by the Asael velasquez Angela accurately reflects the service I personally performed and the decisions made by , Randy Reis MD.
[2016-12-06] MEDS ORDERED: Ibuprofen TAB* 400 MG PO ONE (19:00)
[2016-12-06] MEDS: Acetaminophen TAB* 325 MG PO PRN (22:55)
[2016-12-07] MEDS: Morphine ORAL CONCENTRATE* 5 MG/0.25 ML ORAL.SYRIN PO PRN ×2 (03:05→08:58)
--- NOTE | 2016-12-07 03:41 | DS ---
CC: Dr. Hunt DISCHARGE SUMMARY: DATE OF ADMISSION: 11/28/16 DATE OF DISCHARGE: 12/06/16 DISCHARGE DIAGNOSES: 1. Frequent falls. 2. Progressive renal cell cancer. 3. Shortness of breath. 4. Metabolic acidosis. 5. Delirium. HOSPITAL COURSE: She was admitted for progressive falls of unclear etiology. Workup for the falls was essentially negative. She had a Cardiology consultation, has been on telemetry over the past week, but no malignant arrhythmias. She had a CT scan of the brain without focal lesions. During hospitalization, she remained weak and did have a physical therapy evaluation. She was mobile with assistance and with her walker. Unable to go home and she is going to be discharged to [facility] with [facility]hab for the time being. Currently, not independent of ADLs. She had mental status changes during this admission. For most of the week, she was intermittently oriented, sometimes oriented x2 to 3 and sometimes not oriented at all. She had sundowning at night with episodes of agitation. This cleared up approximately 2 days prior to discharge, and over the past 2 days, she has been lucid at night and oriented x3 in the morning. She is now AAOx3 and can answer questions coherently. No clear reason for delirium was identified. Shortness of breath has been an issue during this admission. It was not a presenting complaint, but she was immediately short of breath including episodes of tachypnea and high-oxygen demand overnight. She was given a short course of steroids, nebulizers, and ultimately breathing improved. She appears to be near her baseline at this time. Workup also included a CTA of the chest that did not show any pulmonary emboli. Differential diagnosis for her breathing includes anxiety, hyperventilation, partial compensation for renal insufficiency and metabolic acidosis, may have had COPD or overactive airway disease on admission. She had history of hypokalemia and is on potassium at home. During this admission, she has fairly persistent hypokalemia and low magnesium. She has been supplemented by oral potassium, IV potassium, and IV magnesium intermittently. Potassium on the morning of discharge was 2.7. She was given runs of K-Dur with mag of 1.73 g of IV mag. We will recheck potassium at 2 p.m. and if improved, discharge today. I altered her discharge medications for potassium 40 mEq daily at home and magnesium 800 mg b.i.d. She was on hydrochlorothiazide prior to admission and this was stopped on discharge. DISCHARGE MEDICATIONS: 1. Diltiazem CD 120 mg daily. 2. Gabapentin 100 mg b.i.d. 3. Synthroid (levothyroxine) 100 mcg daily. 4. Oxycodone 5 to 10 mg q.4 p.r.n. 5. Albuterol 1 puff b.i.d. 6. Hydroxychloroquine 200 mg daily. 7. Lorazepam 0.5 to 1 mg t.i.d. 8. Potassium 40 mEq p.o. daily. 9. Amlodipine 2.5 mg daily. 10. Magnesium 800 mg p.o. b.i.d. DISCHARGE INSTRUCTIONS: All her cancer therapy will be held, follow up within next [address] Hunt. Will need electrolyte monitoring in the halfway. [id number]/[facility] #: [id number] WENDY
[2016-12-07] MEDS: Levothyroxine TAB* 100 MCG TAB PO SCH (06:14)
[2016-12-07 08:55] VITALS: BP 148/52
[2016-12-07] MEDS: Omeprazole CAP* 20 MG PO SCH (08:57)
[2016-12-07] MEDS: Potassium Chlor TAB* 20 MEQ TAB.ER PO SCH (08:57)
[2016-12-07] MEDS: Diltiazem CD CAP* 120 MG PO SCH (08:57)
[2016-12-07] MEDS: Mometasone/Formoter 200/5 MDI INH SCH (09:16)
[2016-12-07 10:19] LABS: BUN/Creatinine Ratio 12.9 (8-20); EGFR African American 121.3 (>60); EGFR Non-African American 94.4 (>60); Magnesium 2.4 mg/dL (1.9-2.7); Potassium 3.6 mmol/L (3.5-5.0)
[2016-12-07] MEDS: Enoxaparin(*) 30 MG/0.3 ML SYR SUBCUT SCH (10:38)
[2016-12-07] MEDS: Albuterol/Ipratropium NEB.SOL* Albuterol 2.5 MG/Ipratropium 0.5 MG 3 ML INH PRN (13:30)
== END 2016-12-07 14:35 | DRG 948 ==
LOC: ED 13:24 → MEDTELE 17:04 → OBSVTOIN 11-30 12:00 → MED 12-05 18:32
PROVIDERS: ADMIT Internal Medicine Hematology & Oncology; ATTEND Internal Medicine Hematology & Oncology
DX: R41.82 Altered mental status, unspecified (principal); E87.2 Acidosis; C79.9 Secondary malignant neoplasm of unspecified site; M32.9 Systemic lupus erythematosus, unspecified; I27.2 Other secondary pulmonary hypertension; C64.9 Malignant neoplasm of unspecified kidney, except renal pelvis; E87.1 Hypo-osmolality and hyponatremia; Z95.0 Presence of cardiac pacemaker; Z88.8 Allergy status to other drugs, medicaments and biological substances; Z91.041 Radiographic dye allergy status; E03.9 Hypothyroidism, unspecified; I10 Essential (primary) hypertension; Z85.118 Personal history of other malignant neoplasm of bronchus and lung; M19.90 Unspecified osteoarthritis, unspecified site; H26.9 Unspecified cataract; F41.9 Anxiety disorder, unspecified; F32.9 Major depressive disorder, single episode, unspecified; Z90.710 Acquired absence of both cervix and uterus; Z82.49 Family history of ischemic heart disease and other diseases of the circulatory system; Z87.891 Personal history of nicotine dependence; I25.10 Atherosclerotic heart disease of native coronary artery without angina pectoris; Z91.81 History of falling; E87.6 Hypokalemia; Z66 Do not resuscitate; R06.02 Shortness of breath; R10.13 Epigastric pain; I08.1 Rheumatic disorders of both mitral and tricuspid valves; R41.0 Disorientation, unspecified
CPT/HCPCS: 36415; 70450; 70470; 71010; 71250; 71275; 80048; 80053; 80320; 81003; 81015; 82140; 82550; 82607; 82803; 83605; 83735; 84439; 84443; 84484; 85025; 93005; 94640; 94760; 99219; 99232; 99233; 99239; A9270-GY; G0378; G0480; G8978-GP-CJ; G8979-GP-CI; G8980-GP-CJ; J1650; J2270; J3475; J3480; J7512; Q9967

== ENCOUNTER 2016-12-25 10:54 | Inpatient (IN) | payer MEDICARE ==
[2016-12-25] MEDS ORDERED: methylPREDNISolone 125 MG* 2 ML VIAL IV ONE (11:11)
[2016-12-25] MEDS ORDERED: NS 0.9% 1000 ML* 2,000 ML IV ONE (11:11)
[2016-12-25] MEDS ORDERED: Albuterol/Ipratropium NEB.SOL* Albuterol 2.5 MG/Ipratropium 0.5 MG 3 ML INH ONE (11:11)
[2016-12-25] MEDS ORDERED: Albuterol/Ipratropium NEB.SOL* Albuterol 2.5 MG/Ipratropium 0.5 MG 3 ML ONE (11:14)
[2016-12-25] MEDS ORDERED: Aspirin Low Dose CHEW TAB* 81 MG PO ONE (11:26)
--- NOTE | 2016-12-25 11:42 | RAD ---
INDICATION: Shortness of breath, cough, wheezing. COMPARISON: Comparison is made with a prior chest x-ray study from December 01, 2016. TECHNIQUE: A portable view of the chest was obtained. FINDINGS: There is a dual-chamber transvenous pacemaker present. The heart is within normal limits in size for this portable exam. There is diffuse prominence of the interstitial markings with a more focal patchy infiltrate at the right lung base. No pleural effusion is seen. IMPRESSION: SMALL RIGHT BASILAR INFILTRATE SUGGESTIVE OF PNEUMONIA WITH SUPERIMPOSED INTERSTITIAL INFILTRATES POSSIBLY REPRESENTING CONGESTIVE HEART FAILURE.
[2016-12-25 11:43] LABS: Hematocrit 37 % (35-47); Hemoglobin 12.2 g/dl (12.0-16.0); Mean Corpuscular HGB Conc 33 g/dl (31-36); Mean Corpuscular Hemoglobin 30 pg (27-31); Mean Corpuscular Volume 91 fL (80-97); Mean Platelet Volume 7 um3 (7.4-10.4); Red Blood Count 4.02 10^6/ul (4.0-5.4); Red Cell Distribution Width 16 % (10.5-15); White Blood Count 14.7 10^3/ul (3.5-10.8)
[2016-12-25 12:02] LABS: BUN/Creatinine Ratio 8.7 (8-20); Calcium 8.7 mg/dL (8.6-10.3); EGFR African American 67.6 (>60); EGFR Non-African American 52.5 (>60); Globulin 3.2 g/dL (2-4); Potassium 4.7 mmol/L (3.5-5.0); Total Bilirubin 0.6 mg/dL (0.2-1.0); Total Protein 6.2 g/dL (6.4-8.9)
[2016-12-25 12:05] LABS: Troponin I 0.06 ng/mL (<0.04)
[2016-12-25] MEDS ORDERED: Levofloxacin 750 MG IVPREMIX(* 750 MG/150 ML BAG IVPB ONE (12:16)
[2016-12-25] MEDS ORDERED: Furosemide IV* 10 MG/ML VIAL (40 MG) IV ONE (12:16)
[2016-12-25] MEDS ORDERED: Acetaminophen TAB* 325 MG PO PRN (14:43)
[2016-12-25] MEDS ORDERED: oxyCODONE TAB* 5 MG TAB PO PRN (14:43)
[2016-12-25] MEDS ORDERED: Benzocaine/Menthol LOZ* 1 LOZENGE PO PRN (14:43)
[2016-12-25] MEDS ORDERED: Loperamide CAP* 2 MG PO PRN (14:43)
[2016-12-25] MEDS ORDERED: LORazepam TAB(*) 0.5 MG PO PRN (14:43)
--- NOTE | 2016-12-25 14:54 | ED ---
Davian Pabon Nilda, scribed for Roshan Worley MD on 12/25/16 at 1111 . Shortness of Breath - HPI Summary HPI Summary: Pt is a 71 y/o F BIBA who presents to ED c/o acute on chronic SOB. Sx have been present for multiple weeks and is characterized as dyspnea at rest. Sx aggravated and alleviated by nothing. Additionally c/o cough, edema, chills and wheezing. Denies CP, fever, vomiting. Was [place] about 2 [place] [facility], per son. Is not on blood thinners. Is currently undergoing treatments for kidney CA with Dr. Hunt. Some reports there is some metastases to the lungs, but they are small. No PMHx DVT, PE. - History of Current Complaint Hx Obtained From: Patient, Family/Preventive Medicine Specialist - Son Onset/Duration: Lasting Weeks, Still Present Dyspnea At: Rest Aggrevating Factors: Nothing Alleviating Factors: Nothing Associated Signs & Symptoms: Cough (Nonproductive), Wheezing, Chills, Edema - Allergy/Home Medications Allergies/Adverse Reactions: Allergies Allergy/AdvReac Type Severity Reaction Status Date / Time Iodinated Diagnostic Agents Allergy Rash And Verified 12/25/16 11:14 Itching Prochlorperazine AdvReac Nausea Verified 12/25/16 11:14 [From Compazine] CT CONTRAST Allergy Rash And Uncoded 12/25/16 11:14 Itching Home Medications: Home Medications Acetaminophen TAB* [Tylenol TAB*] 650 mg PO Q4H PRN 12/25/16 [History Confirmed 12/25/16] LORazepam TAB(*) [Ativan 0.5 MG TAB (*)] 0.5 mg PO Q8H PRN 12/25/16 [History Confirmed 12/25/16] Loperamide CAP* [Imodium CAP*] 2 mg PO Q4H PRN 12/25/16 [History Confirmed 12/25] Magnesium 800 mg PO BID 12/25/16 [History Confirmed 12/25/16] Nystatin SUSPENSION* [Nystatin*] 5 ml SWISH SWAL QID 12/25/16 [History Confirmed 12/25/16] Thiamine TAB* [Vitamin B-1 TAB*] 100 mg PO DAILY 12/25/16 [History Confirmed 03/31] Throat Lozenges [Cough Drops Menthol] 1 marie PO Q6HR PRN 12/25/16 [History Confirmed 12/25/16] oxyCODONE TAB* [Roxycodone TAB 5 mg*] 5 mg PO Q6H PRN 12/25/16 [History Confirmed 12/25/16] oxyCODONE TAB* [Roxycodone TAB 5 mg*] 10 mg PO Q6H PRN 12/25/16 [History Confirmed 12/25/16] PMH/Surg Hx/FS Hx/Imm Hx Endocrine/Hematology History: Reports: Hx Blood Transfusions, Hx Systemic Lupus Erythematosus, Hx Thyroid Disease - hypothyroidism, Hx Anemia Denies: Hx Anticoagulant Therapy, Hx Blood Disorders, Hx Bone Marrow Disease , Hx Diabetes, Hx Sickle Cell Disease, Hx Unexplained Bleeding, Other Endocrine/ Hematological Disorders Cardiovascular History: Reports: Hx Angina, Hx Hypertension Denies: Hx Congestive Heart Failure, Hx Deep Vein Thrombosis, Hx Pacemaker/ ICD Respiratory History: Reports: Hx Pneumonia, Other Respiratory Problems/ Disorders - RENAL AND LUNG CANCER, ON CHEMO Denies: Hx Asthma, Hx Chronic Obstructive Pulmonary Disease (COPD), Hx Pulmonary Embolism GI History: Reports: Hx Hiatal Hernia History: Denies: Hx Renal Disease Musculoskeletal History: Reports: Hx Arthritis Sensory History: Reports: Hx Cataracts, Hx Contacts or Glasses Denies: Hx Glaucoma, Hx Macular Degeneration, Hx Deafness, Hx Hearing Aid Opthamlomology History: Reports: Hx Cataracts, Hx Contacts or Glasses Denies: Hx Glaucoma, Hx Macular Degeneration Neurological History: Reports: Hx Migraine Denies: Hx Dementia, Hx Seizures, Other Neuro Impairments/Disorders Psychiatric History: Reports: Hx Anxiety, Hx Depression Denies: Hx Panic Disorder, Hx Substance Abuse - Cancer History Cancer Type, Location and Year: RENAL CANCER - W/ METS Hx Chemotherapy: Yes - current Hx Radiation Therapy: No - Surgical History Surgery Procedure, Year, and Place: HYSTERECTOMY, APPENDECTOMY;VEINOUS LIGATION ; TONSILECTOMY, PACEMAKER Hx Anesthesia Reactions: No Infectious Disease History: Denies: Hx Clostridium Difficile, Hx Hepatitis, Hx Human Immunodeficiency Virus (HIV), Hx of Known/Suspected MRSA, Hx Shingles, Hx Tuberculosis, Hx Known/ Suspected VRE, Hx Known/Suspected VRSA, Traveled Outside the [place] in Last 30 Days - Family History Known Family History: Positive: Cardiac Disease - Social History Alcohol Use: None Substance Use Type: Reports: None Hx Tobacco Use: No Smoking Status (MU): Former Smoker Type: Cigarettes Amount Used/How Often: 40 YRS Length of Time of Smoking/Using Tobacco: 40 YRS Have You Smoked in the Last Year: No Review of Systems Positive: Chills. Negative: Fever Positive: Shortness Of Breath, Cough, Other - Wheezing Negative: Vomiting Positive: Edema All Other Systems Reviewed And Are Negative: Yes Physical Exam - Summary Physical Exam Summary: The patient is well-nourished in mild respiratory distress. The skin is warm and dry and pale. She is not cyanotic. HEENT: The head is normocephalic and atraumatic. The pupils are equal and reactive. The conjunctivae are clear and without drainage. The sclera are clear and not pale. Nares are patent and without drainage. Mouth reveals extremely dry mucous membranes and the throat is without erythema and exudate. The external ears are intact. The ear canals are patent and without drainage. The tympanic membranes are intact. Neck is supple with full range of motion and non-tender. There is JVD present. Respiratory: Chest is non-tender. The lungs have diminished breath sounds with expiratory wheezes and rales in the bases. No retractions noted. Cardiovascular: Hear is regular rate and rhythm. There is no murmur or rub auscultated. Pulses are symmetrical and equal. Abdomen: The abdomen is soft and non-tender. There are normal bowel sounds heard in all four quadrants and there is no organomegaly palpated. Musculoskeletal: There is no back pain noted. Extremities are non-tender with full range of motion. There is capillary refill of 3 seconds. There is pitting edema present, R>L with no calf tenderness elicited. Neurological: Patient is alert and oriented to person, place and time. Psychiatric: The patient has an appropriate affect and does not exhibit any anxiety or depression. Triage Information Reviewed: Yes Vital Signs On Initial Exam: Initial Vitals Temp Pulse Resp BP Pulse Ox 97.3 F 90 16 142/59 92 12/25/16 11:11 12/25/16 11:11 12/25/16 11:11 12/25/16 11:11 12/25/16 11:11 Vital Signs Reviewed: Yes Diagnostics - Vital Signs Vital Signs Temp Pulse Resp BP Pulse Ox 12/25/16 13:33 20 138/62 12/25/16 13:00 88 11 122/48 95 12/25/16 12:30 85 13 120/59 96 12/25/16 12:00 87 13 136/57 96 12/25/16 11:30 87 12 126/55 99 12/25/16 11:22 87 14 99 12/25/16 11:11 97.3 F 90 16 142/59 92 12/25/16 11:02 90 93 12/25/16 11:01 142/59 - Laboratory Lab Results: Lab Results 12/25/16 12/25/16 12/25/16 Range/Units 11:27 11:27 11:27 WBC 14.7 H (3.5-10.8) 10^3/ul RBC 4.02 (4.0-5.4) 10^6/ul Hgb 12.2 (12.0-16.0) g/dl Hct 37 (35-47) % MCV 91 (80-97) fL MCH 30 (27-31) pg MCHC 33 (31-36) g/dl RDW 16 H (10.5-15) % Plt Count 408 (150-450) 10^3/ul MPV 7 L (7.4-10.4) um3 Neut % (Auto) 90.6 H (38-83) % Lymph % (Auto) 4.6 L (25-47) % [place] % (Auto) 4.3 (1-9) % Eos % (Auto) 0.1 (0-6) % Baso % (Auto) 0.4 (0-2) % Absolute Neuts (auto) 13.3 H (1.5-7.7) 10^3/ul Absolute Lymphs (auto) 0.7 L (1.0-4.8) 10^3/ul Absolute Monos (auto) 0.6 (0-0.8) 10^3/ul Absolute Eos (auto) 0 (0-0.6) 10^3/ul Absolute Basos (auto) 0.1 (0-0.2) 10^3/ul Absolute Nucleated RBC 0 10^3/ul Nucleated RBC % 0 INR (Anticoag Therapy) 0.90 (0.89-1.11) Sodium (133-145) mmol/L Potassium (3.5-5.0) mmol/L Chloride (101-111) mmol/L Carbon Dioxide (22-32) mmol/L Anion Gap (2-11) mmol/L BUN (6-24) mg/dL Creatinine (0.51-0.95) mg/dL Est GFR ( Amer) (>60) Est GFR (Non-Af Amer) (>60) BUN/Creatinine Ratio (8-20) Glucose (70-100) mg/dL Lactic Acid (0.5-2.0) mmol/L Calcium (8.6-10.3) mg/dL Total Bilirubin (0.2-1.0) mg/dL AST (13-39) U/L ALT (7-52) U/L Alkaline Phosphatase (34-104) U/L Troponin I (<0.04) ng/mL B-Natriuretic Peptide 566 H ( - 100) pg/mL Total Protein (6.4-8.9) g/dL Albumin (3.2-5.2) g/dL Globulin (2-4) g/dL Albumin/Globulin Ratio (1-3) 12/25/16 12/25/16 Range/Units 11:27 11:27 WBC (3.5-10.8) 10^3/ul RBC (4.0-5.4) 10^6/ul Hgb (12.0-16.0) g/dl Hct (35-47) % MCV (80-97) fL MCH (27-31) pg MCHC (31-36) g/dl RDW (10.5-15) % Plt Count (150-450) 10^3/ul MPV (7.4-10.4) um3 Neut % (Auto) (38-83) % Lymph % (Auto) (25-47) % [place] % (Auto) (1-9) % Eos % (Auto) (0-6) % Baso % (Auto) (0-2) % Absolute Neuts (auto) (1.5-7.7) 10^3/ul Absolute Lymphs (auto) (1.0-4.8) 10^3/ul Absolute Monos (auto) (0-0.8) 10^3/ul Absolute Eos (auto) (0-0.6) 10^3/ul Absolute Basos (auto) (0-0.2) 10^3/ul Absolute Nucleated RBC 10^3/ul Nucleated RBC % INR (Anticoag Therapy) (0.89-1.11) Sodium 126 L (133-145) mmol/L Potassium 4.7 (3.5-5.0) mmol/L Chloride 96 L (101-111) mmol/L Carbon Dioxide 23 (22-32) mmol/L Anion Gap 7 (2-11) mmol/L BUN 9 (6-24) mg/dL Creatinine 1.03 H (0.51-0.95) mg/dL Est GFR ( Amer) 67.6 (>60) Est GFR (Non-Af Amer) 52.5 (>60) BUN/Creatinine Ratio 8.7 (8-20) Glucose 138 H (70-100) mg/dL Lactic Acid 1.9 (0.5-2.0) mmol/L Calcium 8.7 (8.6-10.3) mg/dL Total Bilirubin 0.60 (0.2-1.0) mg/dL AST 22 (13-39) U/L ALT 7 (7-52) U/L Alkaline Phosphatase 121 H (34-104) U/L Troponin I 0.06 H* (<0.04) ng/mL B-Natriuretic Peptide ( - 100) pg/mL Total Protein 6.2 L (6.4-8.9) g/dL Albumin 3.0 L (3.2-5.2) g/dL Globulin 3.2 (2-4) g/dL Albumin/Globulin Ratio 0.9 L (1-3) Result Diagrams: 12/25/16 11:27 12/25/16 11:27 Lab Statement: Any lab studies that have been ordered have been reviewed, and results considered in the medical decision making process. - Radiology CXR Xray Interpretation: Positive (See Comments) - MALL RIGHT BASILAR INFILTRATE SUGGESTIVE OF PNEUMONIA WITH SUPERIMPOSED INTERSTITIAL INFILTRATES POSSIBLY REPRESENTING CONGESTIVE HEART FAILURE. ED physician reviewed this radiology repotr and agrees. Radiology Interpretation Completed By: Radiologist - EKG 1109 Cardiac Rate: NL - 89 bpm EKG Rhythm: Sinus Rhythm ST Segment: Non-Specific - Significant ST depressions of 5 mm in V2-V3, T wave inversions in lead 1 and aVL EKG Comparison: Other - ST depressions not present on EKG from 11/28/2016 Re-Evaluation - Re-Evaluation First Eval Re-Evaluation Time: 11:36 Change: Improved Comment: Pt denies any CP but notes tightness for a few days. Tightness is not worse today, but may have been a few days ago. Her symptoms are improving with respiratory treatments. Course/Dx - Course Assessment/Plan: Pt is a 71 y/o F BIBA who presents to ED c/o acute on chronic SOB. Sx have been present for multiple weeks and is characterized as dyspnea at rest. Additionally c/o cough, edema, chills and wheezing. Denies CP, fever, vomiting. Was [place] about 2 weeks ago [place] [facility]x of [place], per son. Is not on blood thinners. Is currently undergoing treatments for kidney CA with Dr. Hunt. Some reports there is some metastases to the lungs, but they are small. No PMHx DVT, PE. CXR reveals "MALL RIGHT BASILAR INFILTRATE SUGGESTIVE OF PNEUMONIA WITH SUPERIMPOSED. INTERSTITIAL INFILTRATES POSSIBLY REPRESENTING CONGESTIVE HEART FAILURE." EKG is sinus rhythm with significant ST depressions of 5 mm in V2-V3, T wave inversions in lead 1 and aVL. Troponin of 0.06. In the ED course, pt receive Duoneb, Lasix, ASA, Levaquin and Solu- Medrol. Discussed care of pt with Dr. Hunt who accepts pt for admission. Pt will be admitted with Dx of PNA and chest pain. She understands and agrees. Elevated BP noted and advised to f/u. - Diagnoses Differential Diagnosis/HQI/PQRI: Positive: CHF, AR, Pneumonia Provider Diagnoses: PNA (pneumonia), Chest pain, Ischemic chest pain - Physician Notifications Discussed Care of Patient With: Jatinder Hunt Time Discussed With Above Provider: 12:21 Instructed by Provider To: Other - Will evaluate the pt in the ED and accept her to his services. - Critical Care Time Critical Care Time: 30-74 min - 30 minutes Discharge - Discharge Plan Condition: Stable Disposition: ADMITTED TO [facility] documentation as recorded by the Davian velasquez Nilda accurately reflects the service I personally performed and the decisions made by me, Roshan Worley MD.
[2016-12-25] MEDS: Gabapentin CAP(*) 100 MG PO SCH (16:24)
[2016-12-25] MEDS: Nystatin SUSPENSION* 100000 UNITS/ML 5 ML UDC SWISH SWAL SCH ×2 (16:25→20:36)
[2016-12-25] MEDS: oxyCODONE TAB* 5 MG TAB PO PRN ×2 (20:34→23:25)
[2016-12-25] MEDS: Magnesium Oxide TAB* 400 MG PO SCH (20:35)
[2016-12-26] MEDS: LORazepam TAB(*) 0.5 MG PO PRN ×3 (00:09→20:09)
[2016-12-26] MEDS: oxyCODONE TAB* 5 MG TAB PO PRN ×4 (03:01→21:47)
[2016-12-26] MEDS: Levothyroxine TAB* 100 MCG TAB PO SCH (06:15)
[2016-12-26 08:00] LABS: Hematocrit 38 % (35-47); Hemoglobin 12.9 g/dl (12.0-16.0); Mean Corpuscular HGB Conc 34 g/dl (31-36); Mean Corpuscular Hemoglobin 31 pg (27-31); Mean Corpuscular Volume 90 fL (80-97); Mean Platelet Volume 7 um3 (7.4-10.4); Red Blood Count 4.18 10^6/ul (4.0-5.4); Red Cell Distribution Width 17 % (10.5-15); White Blood Count 9.1 10^3/ul (3.5-10.8)
[2016-12-26 08:13] LABS: Albumin 2.9 g/dL (3.2-5.2); BUN/Creatinine Ratio 9.5 (8-20); EGFR African American 74.2 (>60); EGFR Non-African American 57.7 (>60); Globulin 3.5 g/dL (2-4); Total Bilirubin 0.7 mg/dL (0.2-1.0); Total Protein 6.4 g/dL (6.4-8.9)
[2016-12-26] MEDS: Hydroxychloroquine TAB* 200 MG PO SCH (09:13)
[2016-12-26] MEDS: Diltiazem CD CAP* 120 MG PO SCH (09:13)
[2016-12-26] MEDS: Magnesium Oxide TAB* 400 MG PO SCH ×2 (09:14→20:09)
[2016-12-26] MEDS: Potassium Chlor TAB* 20 MEQ TAB.ER PO SCH (09:14)
[2016-12-26] MEDS: Gabapentin CAP(*) 100 MG PO SCH (09:14)
[2016-12-26] MEDS: Nystatin SUSPENSION* 100000 UNITS/ML 5 ML UDC SWISH SWAL SCH ×4 (09:15→20:09)
[2016-12-26] MEDS: Thiamine TAB* 100 MG TAB PO SCH (10:29)
[2016-12-26] MEDS ORDERED: Furosemide IV* 10 MG/ML 2 ML VIAL (20 MG) IV ONE (11:35)
[2016-12-26] MEDS: Enoxaparin(*) 40 MG/0.4 ML SYR SUBCUT SCH (11:56)
[2016-12-26] MEDS: Levofloxacin 500 MG IVPREMIX(* 500 MG/100 ML BAG IVPB SCH (13:38)
[2016-12-26] MEDS ORDERED: Albuterol/Ipratropium NEB.SOL* Albuterol 2.5 MG/Ipratropium 0.5 MG 3 ML INH ONE (14:15)
--- NOTE | 2016-12-26 15:53 | ECHO ---
Patient: VILMA GARCIA [facility] Rec#: [id number] : 1945 Date: 12/26/2016 Age: 71y Height: 152.4 cm / 60.0 in Weight: 54.43 kg / 120.0 lbs Sex: F BSA: 1.5 Room#: 440 Admit Date#: 12/25/2016 Type: Inpatient Referring: Jatinder Hunt MD Reading: Concepcion Shen MD Frit Burner: Juana Xavier [facility] Transthoracic Echocardiogram Indication: SOB//CHF BP: 145/69 HR: 81 Rhythm: NSR Findings History: Anxiety,CAD,HTN,Lupus,former smoker,kidney cancer with mets, chemo currently,hypothyroid. Technical Comments: The study quality is good. Completed at 1351. Left Ventricle: The left ventricular chamber size is normal. There is a focal wall motion abnormality present.Focal area of hypokinesis of the anterior wall and septum near the apex. Best seen on short axis and 3 chamber view. There is normal left ventricular systolic function. The estimated ejection fraction is 55-60%. Abnormal left ventricular diastolic function is observed. Left Atrium: The left atrium is moderate to severely dilated. Right Ventricle: The right ventricular cavity size is normal. The right ventricular global systolic function is normal. A pacemaker wire is visualized in the right ventricle. Right Atrium: The right atrial cavity size is normal. A pacemaker wire is visualized in the right atrium.vs port. Aortic Valve: The aortic valve is trileaflet. There is a trace of aortic regurgitation. There is no evidence of aortic stenosis. Mitral Valve: The mitral valve leaflets are moderately thickened. There is moderate mitral regurgitation. There is no evidence of mitral stenosis. Tricuspid Valve: The tricuspid valve leaflets are normal. There is mild to moderate tricuspid regurgitation. There is evidence of mild pulmonary hypertension. There is no tricuspid stenosis. Pulmonic Valve: The pulmonic valve appears normal. There is no evidence of pulmonic regurgitation. There is no pulmonic stenosis. Pericardium: The pericardium appears normal. Aorta: There is no dilatation of the ascending aorta. There is no dilatation of the aortic arch. There is no dilation of the aortic root. Pulmonary Artery: The main pulmonary artery appears normal. Venous: The inferior vena cava is dilated. There is a greater than 50% respiratory change in the inferior vena cava dimension. Conclusions Normal LV chamber dimensions. Focal area of hypokinesis of the anterior wall and septum near the apex and otherwise normal to hyperdynamic systolic function. The estimated ejection fraction is 55-60%. Abnormal left ventricular diastolic function is observed. The right ventricular global systolic function is normal. There is a trace of aortic regurgitation. There is moderate mitral regurgitation. There is mild to moderate tricuspid regurgitation. PA pressure estimated at 44 mmHg (mildly increased). Compared with prior echo of 11/14/12, EF is stable, wall motion abnormality newly described, AI is stable, MR has increased from trace, TR has increased from trace. Elevation in PA pressure is new. Measurements Name Value Normal Range RVIDd (AP) 2D 2.1 cm (0.9 - 2.6) RVDdMajor (2D) 2.5 cm (2.2 - 4.4) RAd ISD 4CH 3.5 cm (3.4 - 4.9) RA (A4C)W 3.3 cm (2.9 - 4.6) IVSd (2D) 0.7 cm (0.6 - 1) LVPWd (2D) 0.8 cm (0.6 - 1) LVIDd (2D) 4.1 cm (3.6 - 5.4) LVIDs (2D) 2.4 cm - LV FS (2D) 41 % (25 - 45) Aortic Annulus 1.7 cm (1.4 - 2.6) Ao root diameter (2D) 2.9 cm (2.1 - 3.5) Ascending Ao 3.4 cm (2.1 - 3.4) Aortic arch 2.3 cm (1.8 - 3.4) Descending Ao 0.4 cm - LA dimension (AP) 2D 4.9 cm (2.3 - 3.8) LAd ISD 4CH 4.5 cm (2.9 - 5.3) LA ISD 4CH W 4.5 cm (2.5 - 4.5) Name Value Normal Range LA ESV SP 4CH (A/L) 54 ml - LA ESV SP 2CH (A/L) 72 ml - LA ESV BP (A/L) 65 ml - LA ESV BP (A/L) index 43.62 ml/m2 - LA ESV SP 4CH (MOD) 49 ml - LA ESV SP 2CH (MOD) 68 ml - Name Value Normal Range MV E-wave Vmax 1.2 m/sec - MV deceleration time 162 msec - MV A-wave Vmax 1.1 m/sec - MV E:A ratio 1.13 ratio - LV septal e' Vmax 0.06 m/sec - LV lateral e' Vmax 0.08 m/sec - LV E:e' septal ratio 20 ratio - LV E:e' lateral ratio 15 ratio - Name Value Normal Range AV Vmax 1.2 m/sec - AV VTI 25 cm - AV peak gradient 6.14 mmHg - AV mean gradient 2.62 mmHg - LVOT Vmax 0.9 m/sec - LVOT VTI 24.3 cm - LVOT peak gradient 3.33 mmHg - LVOT mean gradient 1.52 mmHg - Name Value Normal Range MR Vmax 5.8 m/sec - MR VTI 200.8 cm - Name Value Normal Range TR Vmax 3 m/sec - TR peak gradient 36 mmHg - RAP 8 mmHg - RVSP 44 mmHg - IVC diameter 2.3 cm - Name Value Normal Range PV Vmax 1 m/sec - PV peak gradient 4.39 mmHg -
[2016-12-27] MEDS: oxyCODONE TAB* 5 MG TAB PO PRN ×5 (04:09→20:39)
[2016-12-27] MEDS: LORazepam TAB(*) 0.5 MG PO PRN ×3 (04:39→20:40)
[2016-12-27] MEDS ORDERED: Albuterol/Ipratropium NEB.SOL* Albuterol 2.5 MG/Ipratropium 0.5 MG 3 ML ONE (05:01)
[2016-12-27] MEDS ORDERED: Albuterol 2.5 MG/3 ML NEB.SOL* (0.083%) INH PRN (05:10)
[2016-12-27] MEDS: Levothyroxine TAB* 100 MCG TAB PO SCH (05:39)
[2016-12-27] MEDS ORDERED: Furosemide IV* 10 MG/ML 2 ML VIAL (20 MG) IV ONE (06:00)
[2016-12-27 06:07] LABS: BUN/Creatinine Ratio 11.5 (8-20); Calcium 8.9 mg/dL (8.6-10.3); EGFR African American 73.3 (>60); Potassium 4.2 mmol/L (3.5-5.0)
--- NOTE | 2016-12-27 07:16 | PN ---
Progress Note - Progress Note Date of Service: 12/27/16 Note: Nursing and RT requested evaluation for respiratory distress. Mrs Daniel is a 71YO female w/ metastatic renal cell CA, CAD, & 20PY smoking HX quit ~8years ago. Upon arrival, Mrs Daniel was quite SOB, unable to speak in complete sentences and in moderate bordering on severe respiratory distress. She denied chest pain , sweating, and nausea. labs reviewed, BNP initially >1000, trending down. general: as above lungs: initially B lung tadeo were markedly diminished with scant [place]- expiratory wheeze with prolonged expiration, poor aeration, and moderate accessory muscle use CV: RRR abdomen: SNTND extremities: W&D w/ 1+ BLE edema Assessment: plan COPD exacerbation : duoneb x1 now : then albuterol Q2H PRN : tiotropium 18mcg Follow up: after nebulization, aeration improved and respiratory distress decreased to mild. Scant fine cellophane crackles could be heard in B bases and 20mg IV furosemide x1 was ordered. Stefanie Burgess MD oncology was apprised.
[2016-12-27] MEDS: Tiotropium CAP.INH* CAP.INH/18 MCG (USE ORDER SET !) INH SCH (08:35)
[2016-12-27] MEDS ORDERED: Spiriva Inhaler DEVICE* 1 EACH DEVICE INH ONE (09:00)
[2016-12-27] MEDS: Magnesium Oxide TAB* 400 MG PO SCH ×2 (10:04→20:39)
[2016-12-27] MEDS: Potassium Chlor TAB* 20 MEQ TAB.ER PO SCH (10:04)
[2016-12-27] MEDS: Diltiazem CD CAP* 120 MG PO SCH (10:04)
[2016-12-27] MEDS: Hydroxychloroquine TAB* 200 MG PO SCH (10:04)
[2016-12-27] MEDS: Nystatin SUSPENSION* 100000 UNITS/ML 5 ML UDC SWISH SWAL SCH ×4 (10:05→20:39)
[2016-12-27] MEDS: Thiamine TAB* 100 MG TAB PO SCH (10:05)
[2016-12-27] MEDS: Gabapentin CAP(*) 100 MG PO SCH (10:15)
[2016-12-27] MEDS: Enoxaparin(*) 40 MG/0.4 ML SYR SUBCUT SCH (10:29)
[2016-12-27] MEDS: Levofloxacin 500 MG IVPREMIX(* 500 MG/100 ML BAG IVPB SCH (12:43)
--- NOTE | 2016-12-27 18:35 | CONS ---
CC: Dr. Hunt; Dr. Godfrey * CARDIOLOGY CONSULT: DATE OF CONSULT: 12/27/16 HISTORY OF PRESENT ILLNESS: The patient is a 71-year-old female patient, who is DNR with known history of renal cell carcinoma with metastases, followed up with Hem/Onc. The patient presented recently to the hospital with a progressive shortness of breath and admitted for hospitalization for pneumonia. She was found to be in congestive heart failure as well. Her chest x-ray from 12/25/16, reported the patient to have small right basilar infiltrates suggestive of pneumonia with superimposed interstitial infiltrate, possibility of congestive heart failure. She is in sinus rhythm. Her labs were abnormal with a BNP on the actually at 1077, although it did come down to 590 today. Troponin 0.04. The patient does have a history of sick sinus syndrome, history of permanent pacemaker implantation, history of coronary artery disease , history of systemic arterial hypertension and lupus. She was treated for pneumonia and congestive heart failure. Cardiology consult was further requested because of her assist in further medical management for her congestive heart failure. She had an echocardiogram that was just done on the that showed her to have normal left ventricular systolic function, EF 55% to 60%. There is left ventricular diastolic dysfunction appreciated. There is moderate mitral insufficiency, [id number] tricuspid insufficiency also appreciated with a PA systolic pressure of 44 mmHg. She is feeling better and responding to Lasix. I understand she did receive 20 mg IV of Lasix. She gives no active symptoms of chest pain at the present time. No fever, no chills , no nausea, no vomiting, no hematochezia, no skin rash, no abdominal pain, no syncope is appreciated. PAST MEDICAL HISTORY: Includes history of renal cell cancer with metastases. No active treatment. She also had a history of hypertension, lupus, coronary artery disease. Detailed information not immediately available to me, and history of pacemaker implantation in 2017. MEDICATIONS: Her medications as an inpatient include: 1. Mag oxide 800 mg twice a day. 2. She is on potassium 40 mEq daily. 4. Spiriva inhaler. 5. She is on Tylenol 650 mg p.o. q.4 hours. 6. Ventolin. 7. Cardizem 120 mg daily. 8. Lovenox 40 mg subcu q.24 hours. 9. Plaquenil 200 mg daily. 10. Levaquin 500 mg q.24 hours. 11. Synthroid 100 mcg daily. 12. She did receive Lasix, that was on the th one dose, actually today 20 mg IV. ALLERGIES: She is allergic to IODINATED DIAGNOSTIC AGENTS and CT CONTRAST. FAMILY HISTORY: No family history of premature coronary artery disease. SOCIAL HISTORY: She smoked and drinks alcohol occasionally, and she quit smoking about 8 years ago. She did smoke for about 40 years. REVIEW OF SYSTEMS: Her review of all other systems essentially is negative. PHYSICAL EXAM: On exam, she is awake, alert. She is frail she is not in any acute distress. Her vitals: Blood pressure is 106/44, her pulse is 76 and she is in sinus rhythm, temperature 98.5, respiratory rate 16. Head and Neck Exam: Normocephalic, atraumatic. Head, ears, nose, and throat essentially benign. Neck: Supple. JVP is not elevated. No carotid bruit. No masses in the neck is appreciated. Chest: Diminished air entry bilaterally. No rales, no wheeze. Heart: Normal S1, S2. No added sounds. No gallops, no rubs. No significant murmurs. Abdomen: Benign, positive bowel sounds. Extremities: No edema, no cyanosis, no clubbing. Skin exam is normal. Psych: Normal affect and mood. CLINICAL STAFF ANESTHESIOLOGIST: No focal deficits appreciated. DIAGNOSTIC STUDIES/LAB DATA: White blood cell is 9.1, hemoglobin 12.9, hematocrit 38, platelets are 373,000. Her sodium 124, potassium 4.2, chloride is 92, BUN 11, creatinine 0.96. Her BNP is 590. LFTs are normal. Her EKG from the , which is yesterday, showed the patient to be in normal sinus rhythm with a heart rate of 85 beats per minute. There is deep T-wave inversions in V1, V2, and V3 appreciated. IMPRESSION: The patient is a 71-year-old with: 1. Known history of renal cell cancer with metastases. She is not on active medical treatment now. 2. Presentation with pneumonia. 3. Congestive heart failure by x-ray, BNP. On physical exam, non-systolic in nature. 4. Normal left ventricular systolic function with EF 55%. 5. [id number] tricuspid insufficiency with moderate pulmonary hypertension. 6. Moderate mitral insufficiency. 7. History of coronary artery disease. Full detailed information not immediately available. 8. History of sick sinus syndrome, status post permanent pacemaker implantation in 2017. 9. Systemic arterial hypertension. PLAN: The plan at the present time for this patient is continue medical treatment. She is already DNR. I would use Lasix very wisely given that she does have normal left ventricular systolic function and not over diurese. I ordered Lasix 20 mg IV to be used daily. She did state that she felt much better after she received Lasix today. She is to have low salt, low fat diet. Restrict fluid to less than 2 L per 24 hours. Monitor her closely and again, she is DNR for medical treatment at the present time. TIME SPENT: More than half of at least 60 plus minutes was in education and counseling mode, [id number], answering all her concerns and questions up to her satisfaction. [id number]/CPS #: [id number]
[2016-12-28 05:52] LABS: BUN/Creatinine Ratio 11.7 (8-20); Calcium 8.1 mg/dL (8.6-10.3); EGFR African American 67.6 (>60); EGFR Non-African American 52.5 (>60); Magnesium 2.8 mg/dL (1.9-2.7); Potassium 3.9 mmol/L (3.5-5.0)
[2016-12-28] MEDS: Levothyroxine TAB* 100 MCG TAB PO SCH (06:21)
[2016-12-28] MEDS: Nystatin SUSPENSION* 100000 UNITS/ML 5 ML UDC SWISH SWAL SCH ×4 (07:56→20:10)
[2016-12-28] MEDS: Tiotropium CAP.INH* CAP.INH/18 MCG (USE ORDER SET !) INH SCH (07:57)
[2016-12-28] MEDS: Potassium Chlor TAB* 20 MEQ TAB.ER PO SCH (07:57)
[2016-12-28] MEDS: Magnesium Oxide TAB* 400 MG PO SCH (07:57)
[2016-12-28] MEDS: Diltiazem CD CAP* 120 MG PO SCH (07:58)
[2016-12-28] MEDS: Hydroxychloroquine TAB* 200 MG PO SCH (07:58)
[2016-12-28] MEDS: Thiamine TAB* 100 MG TAB PO SCH (07:59)
[2016-12-28] MEDS: LORazepam TAB(*) 0.5 MG PO PRN ×3 (07:59→18:17)
[2016-12-28] MEDS: oxyCODONE TAB* 5 MG TAB PO PRN ×4 (07:59→20:10)
[2016-12-28] MEDS ORDERED: diPHENhydraMINE PO* 50 MG PO ONE (11:59)
[2016-12-28] MEDS: Enoxaparin(*) 40 MG/0.4 ML SYR SUBCUT SCH (12:00)
[2016-12-28] MEDS ORDERED: Levofloxacin TAB* 500 MG PO SCH (13:00)
--- NOTE | 2016-12-28 15:07 | RAD ---
INDICATION: Renal cell carcinoma. Hip pain COMPARISON: CT October 22, 2016 TECHNIQUE: Noncontrast axial source images were obtained from the iliac crests through the symphysis pubis. FINDINGS: There are multiple small lytic foci in the right iliac bone concerning for metastasis. There is a fracture of the anterior left acetabulum with a small amount of reparative change suggesting that this is subacute. This is likely a pathologic fracture. There is a lytic lesion of the inferior pubic ramus with a soft tissue component measuring 2 cm. There is a tiny lytic focus is in the anterior lip of the right acetabulum. No additional definitive lytic foci are seen. There is para-aortic and pericaval adenopathy near the bifurcation. The early examination has demonstrated retroperitoneal lymphadenopathy. There is hysterectomy. The noncontrast CT appearance of the bowel is unremarkable. The superficial soft tissues show diffuse subcutaneous edema. The bladder appears normal. IMPRESSION: THERE ARE MULTIPLE NEW LYTIC FOCI INVOLVING THE BONY PELVIS WITH A PATHOLOGIC FRACTURE OF THE ANTERIOR LEFT ACETABULUM. PELVIC LYMPHADENOPATHY. ANASARCA.
[2016-12-29] MEDS: LORazepam TAB(*) 0.5 MG PO PRN ×2 (04:08→10:12)
[2016-12-29 05:34] LABS: Hematocrit 34 % (35-47); Hemoglobin 11.3 g/dl (12.0-16.0); Mean Corpuscular HGB Conc 33 g/dl (31-36); Mean Corpuscular Hemoglobin 30 pg (27-31); Mean Corpuscular Volume 90 fL (80-97); Mean Platelet Volume 7 um3 (7.4-10.4); Red Blood Count 3.79 10^6/ul (4.0-5.4); Red Cell Distribution Width 16 % (10.5-15); White Blood Count 9.2 10^3/ul (3.5-10.8)
[2016-12-29 05:48] LABS: BUN/Creatinine Ratio 9.6 (8-20); Calcium 8.3 mg/dL (8.6-10.3); EGFR African American 75.1 (>60); EGFR Non-African American 58.4 (>60); Potassium 3.9 mmol/L (3.5-5.0)
[2016-12-29] MEDS: Levothyroxine TAB* 100 MCG TAB PO SCH (05:48)
[2016-12-29] MEDS ORDERED: Magnesium Oxide TAB* 400 MG PO SCH (09:00)
[2016-12-29] MEDS ORDERED: predniSONE TAB* 50 MG PO SCH (09:00)
[2016-12-29] MEDS: Tiotropium CAP.INH* CAP.INH/18 MCG (USE ORDER SET !) INH SCH (09:03)
--- NOTE | 2016-12-29 09:37 | PN ---
Progress Note - Progress Note Date of Service: 12/29/16 SOAP: Subjective: []Feeling ok, breathing near baseline, improved from admission. Still pain with walking but was making progress at [facility]. Feel ready to go back to [place]. Acetaminophen (Tylenol Tab*) 650 mg PO Q4H PRN PRN Reason: FEVER/PAIN Last Admin: 12/29/16 05:48 Dose: 650 mg Albuterol (Ventolin 2.5 Mg/3 Ml Neb.Bernadette*) 2.5 mg INH Q2H PRN PRN Reason: SOB/WHEEZING Last Admin: 12/28/16 07:39 Dose: 2.5 mg Diltiazem HCl (Cardizem Cd Cap*) 120 mg PO DAILY [facility] Last Admin: 12/28/16 07:58 Dose: 120 mg Enoxaparin Sodium (Lovenox(*)) 40 mg SUBCUT Q24H [facility] Last Admin: 12/28/16 12:00 Dose: 40 mg Hydroxychloroquine Sulfate (Plaquenil Tab*) 200 mg PO DAILY [facility] Last Admin: 12/28/16 07:58 Dose: 200 mg Levofloxacin (Levaquin Tab*) 500 mg PO Q24H [facility] Last Admin: 12/28/16 12:04 Dose: 500 mg Levothyroxine Sodium (Synthroid Tab*) 100 mcg PO 0600 [facility] Last Admin: 12/29/16 05:48 Dose: 100 mcg Loperamide HCl (Imodium Cap*) 2 mg PO Q4H PRN PRN Reason: LOOSE STOOLS Lorazepam (Ativan Tab(*)) 0.5 mg PO Q6H PRN PRN Reason: ANXIETY Last Admin: 12/29/16 04:08 Dose: 0.5 mg Magnesium Oxide (Magox 400 Tab*) 800 mg PO DAILY [facility] Nystatin (Nystatin Suspension*) 500,000 units SWISH SWAL QID [facility] Last Admin: 12/28/16 20:10 Dose: 500,000 units Oxycodone HCl (Roxycodone Tab*) 5 mg PO Q2H PRN PRN Reason: PAIN - MILD Last Admin: 12/28/16 20:10 Dose: 5 mg Potassium Chloride (Klor Con Er Tab*) 40 meq PO DAILY [facility] Last Admin: 12/28/16 07:57 Dose: 40 meq Prednisone (Deltasone Tab*) 50 mg PO DAILY [facility] Thiamine HCl (Vitamin B-1 Tab*) 100 mg PO DAILY [facility] Last Admin: 12/28/16 07:59 Dose: 100 mg Throat Lozenges (Chloraseptic Marie*) 1 marie PO Q6HR PRN PRN Reason: SORE THROAT Last Admin: 12/26/16 11:56 Dose: 1 marie Tiotropium [place] (Spiriva Cap.Inh*) 1 cap INH DAILY [facility] Last Admin: 12/29/16 09:03 Dose: 1 cap Objective: [] Vital Signs Temp Pulse Resp BP Pulse Ox 98.4 F 80 18 136/49 99 12/29/16 03:29 12/29/16 03:29 12/29/16 04:08 12/29/16 03:29 12/29/16 03:29 HEENT - Pale, no thrush, no LAD, no JVD CTA, no wheezing or crackles, decreased bs. kyphosis RRR S1S2 NT/ND no edema Pelvic CT - progressive bone lesions and pathologic fracture in acetabulum. Assessment: []71 year old with progressive metastatic RCC at [facility] and off therapy at this time. Admitted with acute SOB, pneumonia + CHF Plan: []1. SOB. Better subjectively and lungs clear today BNP is down. Will discharge today: - Continue home inhalers - Decrease Prednisone to 30 mg daily and taper - Lasix 20 mg po daily 2. Pelvic Fracture. Case discussed and CT reviewed with Dr. Joy. Fracture is stable, no indication for surgery. Will plan on XRT to active disease and continued PT. Referral to Dr. Villarreal on Saturday. 3. RCC. Therapy on hold.
[2016-12-29 10:04] VITALS: BP 131/49
[2016-12-29] MEDS: Hydroxychloroquine TAB* 200 MG PO SCH (10:11)
[2016-12-29] MEDS: Diltiazem CD CAP* 120 MG PO SCH (10:12)
[2016-12-29] MEDS: Potassium Chlor TAB* 20 MEQ TAB.ER PO SCH (10:12)
[2016-12-29] MEDS: Thiamine TAB* 100 MG TAB PO SCH (10:13)
[2016-12-29] MEDS: Nystatin SUSPENSION* 100000 UNITS/ML 5 ML UDC SWISH SWAL SCH (10:15)
[2016-12-29] MEDS: oxyCODONE TAB* 5 MG TAB PO PRN (10:24)
--- NOTE | 2016-12-29 11:49 | DS ---
CC: Dr. Burgess * DISCHARGE SUMMARY: DATE OF ADMISSION: 12/25/16 DATE OF DISCHARGE: 12/29/16 DISCHARGE DIAGNOSES: 1. Left hip fracture, subacute. 2. Congestive heart failure. 3. Chronic obstructive pulmonary disease. 4. Metastatic renal cell cancer. 5. Community-acquired pneumonia. HISTORY OF PRESENT ILLNESS: A 71-year-old female, treated in my clinic for renal cell cancer, the therapy has been on hold after admission in October. She was admitted for pneumonia, but then unable to walk and sent home to [facility]. Because she had been in [facility], she has been unable to receive additional chemotherapy. She has been making some progress with physical therapy, but has continued left hip pain. Seen in clinic on December 14, plans to repeat a pelvic CT scan. Unfortunately, she noted increasing shortness of breath and presented to the emergency room on December 25. Diagnosis with questionable pneumonia, COPD exacerbation, and CHF by elevated BNP. She was treated with steroid, inhalers, as well as IV Lasix for diuresis. Shortness of breath improved dramatically yesterday. Now back at baseline. She had a consultation with Dr. Godfrey, who recommended IV Lasix in the hospital and p.o. Lasix on discharge. BNP did drop from 1200 to 400. She continued to have pain. She had a CT scan of the pelvis, which showed progressive bony disease as well as a new fracture in the left acetabulum, likely subacute. Regarding CHF, plan will be to discharge on oral Lasix. We will continue her baseline inhalers and taper prednisone. She has been on 50 mg a day here and she will be discharged on 30 mg p.o. daily. Further taper at [facility]. Hip fracture was reviewed with Dr. Joy. It is a stable fracture and history of walking with the fracture is consistent with the radiographic appearance. No surgical intervention required. We will plan on outpatient radiation therapy and continue physical therapy. Plan will be discharge today to [facility]. MEDICATIONS ON DISCHARGE: 1. Tylenol 650 q. 4 p.r.n. 2. Throat lozenges q. 6 hours p.r.n. 3. Diltiazem CD 120 mg daily. 4. Hydroxychloroquine 200 mg p.o. daily. 5. Lorazepam 0.5 q. 8 p.r.n. 6. Levothyroxine 100 mcg daily. 7. Loperamide 2 mg q. 4 p.r.n. 8. Magnesium 800 mg b.i.d. 9. Nystatin 5 mL swish and swallow p.r.n. 10. Potassium 20 mEq p.o. daily. 11. Thiamine 1000 mg daily. 12. Oxycodone 5 mg q. 6 p.r.n. 13. Albuterol 1 puff q. 6 p.r.n. 14. Gabapentin 100 mg t.i.d. 15. Spiriva 1 daily. 16. Oxycodone 10 mg q. 6 p.r.n. for severe pain. Consultations on followup will be Dr. Villarreal and no labs pending, but we will recheck potassium, magnesium once she is in for radiation. [id number]/[facility] #: [id number] MTDD
[2016-12-29] MEDS: Enoxaparin(*) 40 MG/0.4 ML SYR SUBCUT SCH (12:08)
== END 2016-12-29 12:15 | DRG 190 ==
LOC: ED 10:54 → MEDTELE 13:35
PROVIDERS: ADMIT Internal Medicine Hematology & Oncology; ATTEND Internal Medicine Hematology & Oncology
DX: J44.0 Chronic obstructive pulmonary disease with (acute) lower respiratory infection (principal); J18.9 Pneumonia, unspecified organism; I11.0 Hypertensive heart disease with heart failure; C78.00 Secondary malignant neoplasm of unspecified lung; C79.81 Secondary malignant neoplasm of breast; I27.2 Other secondary pulmonary hypertension; I49.5 Sick sinus syndrome; C64.1 Malignant neoplasm of right kidney, except renal pelvis; I50.9 Heart failure, unspecified; E87.1 Hypo-osmolality and hyponatremia; M84.459A Pathological fracture, hip, unspecified, initial encounter for fracture; J44.1 Chronic obstructive pulmonary disease with (acute) exacerbation; F41.9 Anxiety disorder, unspecified; M32.9 Systemic lupus erythematosus, unspecified; I25.10 Atherosclerotic heart disease of native coronary artery without angina pectoris; Z66 Do not resuscitate; E03.9 Hypothyroidism, unspecified; K44.9 Diaphragmatic hernia without obstruction or gangrene; M19.90 Unspecified osteoarthritis, unspecified site; H26.9 Unspecified cataract; G43.909 Migraine, unspecified, not intractable, without status migrainosus; F32.9 Major depressive disorder, single episode, unspecified; I08.1 Rheumatic disorders of both mitral and tricuspid valves; Z95.0 Presence of cardiac pacemaker; Z87.891 Personal history of nicotine dependence; Z72.89 Other problems related to lifestyle; Z88.8 Allergy status to other drugs, medicaments and biological substances; Z91.041 Radiographic dye allergy status; Z87.01 Personal history of pneumonia (recurrent); Z90.710 Acquired absence of both cervix and uterus; Z82.49 Family history of ischemic heart disease and other diseases of the circulatory system
CPT/HCPCS: 36415; 71010; 72192; 80048; 80053; 83605; 83735; 83880; 83935; 84300; 84484; 85025; 85610; 87040; 87070; 87205; 93005; 93306; 94640; 94760; 99222; 99232; A9270-GY; J1650; J1940; J1956; J2930; J7512

== ENCOUNTER 2017-01-01 03:16 | Inpatient (IN) | payer MEDICARE ==
[2017-01-01] MEDS ORDERED: Albuterol/Ipratropium NEB.SOL* Albuterol 2.5 MG/Ipratropium 0.5 MG 3 ML INH ONE (03:25)
[2017-01-01] MEDS ORDERED: methylPREDNISolone 125 MG* 2 ML VIAL IV ONE (03:25)
[2017-01-01 03:44] LABS: Comments Flag Yes; Hematocrit 40 % (35-47); Hemoglobin 12.8 g/dl (12.0-16.0); Mean Corpuscular HGB Conc 32 g/dl (31-36); Mean Corpuscular Hemoglobin 29 pg (27-31); Mean Corpuscular Volume 91 fL (80-97); Mean Platelet Volume 7 um3 (7.4-10.4); Red Blood Count 4.36 10^6/ul (4.0-5.4); Red Cell Distribution Width 16 % (10.5-15); White Blood Count 28.8 10^3/ul (3.5-10.8)
[2017-01-01 03:45] LABS: Add Diff/Slide Review? Slide Review Added
[2017-01-01 03:55] LABS: Albumin 3.3 g/dL (3.2-5.2); BUN/Creatinine Ratio 10.6 (8-20); C Reactive Protein 5.44 mg/L (< 5.00); Calcium 8.4 mg/dL (8.6-10.3); EGFR African American 75.1 (>60); EGFR Non-African American 58.4 (>60); Globulin 3.1 g/dL (2-4); Magnesium 2.2 mg/dL (1.9-2.7); Potassium 3.6 mmol/L (3.5-5.0); Total Bilirubin 0.9 mg/dL (0.2-1.0); Total Protein 6.4 g/dL (6.4-8.9)
[2017-01-01 04:00] LABS: Troponin I 0.04 ng/mL (<0.04)
[2017-01-01 04:05] LABS: TSH (Thyroid Stimulating Horm) 14.8 mcIU/mL (0.34-5.60)
[2017-01-01] MEDS ORDERED: Acetaminophen TAB* 325 MG PO PRN ×2 (04:38→04:40)
[2017-01-01] MEDS ORDERED: LORazepam TAB(*) 0.5 MG PO PRN (04:40)
[2017-01-01] MEDS ORDERED: Albuterol 2.5 MG/3 ML NEB.SOL* (0.083%) INH PRN (04:41)
[2017-01-01] MEDS ORDERED: Furosemide IV* 10 MG/ML 2 ML VIAL (20 MG) IV ONE ×2 (04:44→10:55)
[2017-01-01 04:57] LABS: PCO2 Arterial 34 mmHg (35-45)
[2017-01-01] MEDS: oxyCODONE TAB* 5 MG TAB PO PRN ×2 (06:26→17:36)
--- NOTE | 2017-01-01 08:00 | HP ---
CC: Dr. Mcdaniels; Dr. Arias; Dr. Burgess; Dr. Villarreal * HISTORY AND PHYSICAL: DATE OF ADMISSION: 01/01/17 PRIMARY CARE PROVIDER: Dr. Mcdaniels. CHIEF COMPLAINT: Shortness of breath. HISTORY OF PRESENT ILLNESS: Gilda Daniel is a 70-year-old female with history of metastatic renal cell carcinoma, who is currently undergoing rehabilitation at [facility]. Patient is known to have occasional shortness of breath, which was just recently diagnosed likely due to diastolic CHF. On 12/29, patient was discharged from our facility with a diagnosis of diastolic CHF. Patient came in to our facility today early in the morning with respiratory distress. The patient's respiratory rate was in the 30s but her oxygenation was fine. She was placed on Vapotherm. When I saw the patient in her ER room, patient had oxygen saturation 100% on near maximum support with Vapotherm. Once we took the Vapotherm off on room air, patient's oxygen saturation continued to be 94. Patient herself stated that she got an anxiety attack. She complained of sudden onset of shortness of breath and chest pain. Currently, she is feeling well. She is going to be placed on overnight observation with a diagnosis of shortness of breath. PAST MEDICAL HISTORY: 1. History of metastatic renal cell carcinoma with metastasis to the lung, breast, and adrenals as well as bone metastasis. 2. History of left pelvic acetabulum fracture. 3. History of iatrogenic hypothyroidism status post two radioiodine treatment for hyperthyroidism in the past. 4. Hypertension. 5. SLE. 6. History of uterine cancer. 7. Osteoarthritis. 8. Chronic low back pain. 9. History of panic attacks. 10. History of hysterectomy, appendectomy, tonsillectomy, and adenoidectomy. 11. Pacemaker placement for sick sinus syndrome. 12. Hyponatremia though to be related to patient's malignancy. MEDICATIONS: At [facility] include: 1. Prednisone 10 mg daily. 2. Lovenox 40 mg subcutaneously daily. 3. Lasix 20 mg daily. 4. Cardizem CD 120 mg daily. 5. Albuterol inhaler on a p.r.n. basis. 6. Oxycodone 5 mg every 6 hours p.r.n. and 10 mg p.r.n. [id number] pain. 7. Spiriva one inhalation daily. 8. Thiamine 100 mg daily. 9. Nystatin suspension 5 mL swish and swallow 4 times a day. 10. Loperamide 2 mg on a p.r.n. basis. 11. Levothyroxine 100 mcg daily. 12. Lorazepam 0.5 mg every 8 hours p.r.n. 13. Plaquenil 200 mg daily. 14. Gabapentin 300 mg 3 times a day. In the ED, the patient received Solu-Medrol at 125 mg daily and DuoNeb treatment. ALLERGIES: Include IV CONTRAST and COMPAZINE. FAMILY HISTORY: Positive for two brothers with heart disease. Patient's sister also had lupus. Both parents had history of colon cancer. SOCIAL HISTORY: Patient had a history of 40-pack year smoking. She quit 8 years ago. She denies any alcohol or drug use. She was and lived alone prior to her admission to [facility] for rehabilitation. Jaime Reed would be her surrogate. REVIEW OF SYSTEMS: Please see History of Present Illness. Patient stated that her left hip hurt somewhat, but she had been ambulating with a rolling walker at [facility]. She states that she frequently has anxiety attacks. Currently, she feels well and relaxed. Usually with her "panic attack", she gets shortness of breath and chest pain. All the remaining 14 systems were reviewed with the patient and were otherwise negative. Please also note that from my review of patient's past medical records, she had cardiac stress test documented as low probability on 12/19/16. PHYSICAL EXAMINATION GENERAL: The patient is a very pleasant 71-year-old female who is in no acute distress. Alert, awake, and oriented x3. VITAL SIGNS: Blood pressure of 175/65, heart rate of 83 and regular, respiratory rate 18, oxygen saturation 94% on 2 L of oxygen nasal cannula, temperature of 98.3. HEENT: Head atraumatic, normocephalic. Eyes: Pupils are equal and reactive to light and accommodation. Oropharynx is clear. Mucosa moist. NECK: Supple, no JVD, no bruits bilaterally. RESPIRATORY: Coarse breath sounds at bilateral bases, otherwise clear. CARDIOVASCULAR: Regular rate and rhythm. No murmur. ABDOMEN: Soft, nontender. Bowel sounds present in all 4 quadrants. EXTREMITIES: There is no edema. Pulses are +2 bilaterally. No clubbing or cyanosis. NEUROLOGIC: Speech is clear. Cranial nerves II through XII are grossly intact. Motor strength is 5/5 bilaterally. PSYCHIATRIC EVALUATION: Patient appears mildly anxious but no evidence of depression. Patient is oriented x3. DIAGNOSTIC STUDIES/LABORATORY DATA: Laboratory data showed white blood cell count of 28.8, hemoglobin of 12.8, hematocrit of 40, and platelets of 423. Sodium of 126, potassium 3.6, chloride 96, carbon dioxide 23, BUN 10, creatinine 0.94. Liver function tests unremarkable. C-reactive protein of 5.4. Lactic acid of 2.4. Troponin of 0.04, which is consistent with prior. Patient's TSH was 14.8 and last checked on 12/03/16 was 3.75. Portable chest x-ray reviewed by myself showed mild vascular congestion. Patient's EKG showed sinus rhythm with heart rate of 88 beats per minute with interventricular conduction delay, nonspecific ST changes in anterolateral leads comparable with prior EKGs. ASSESSMENT AND PLAN: 1. Sudden onset of shortness of breath and chest pain in patient with history of anxiety and panic attacks. Patient did remarkably well after a dose of Solu- Medrol and nebulizer treatment. She is not wheezing. She is saturating 95% currently. I took the patient off Vapotherm. I suspect that it may be just anxiety, although mild diastolic congestive heart failure may contribute. It is also possible that patient gets anxious and she gets diastolic congestive heart failure due to hypertension secondary to anxiety. At this point, the patient is going to be observed in the media monitor bed with followup troponins. She is going to be placed on daily p.o. Lasix and given one dose of IV Lasix in the ED. 2. In regards to patient's marked leukocytosis. I suspect that may be related to stress and steroid treatment. Her C-reactive protein is only mildly elevated at 5.4. There is no evidence of acute infection for the time being. We will continue to observe without antibiotics and repeat the patient's CBC later on today. 3. In regards to the patient's hyponatremia, it is chronic and consistent with prerenal values. 4. In regards to the patient's renal cell carcinoma with multiple metastasis, patient stated that she was not offered any further treatment for the time being. 5. In regards to patient's left acetabular fracture, the patient will be continued on DVT prophylaxis with Lovenox at 40 mg subcutaneously due to her as mentioned above hip fracture. 6. Patient's code status is do not resuscitate and that was confirmed by the patient. TIME SPENT: Please note that approximately 75 minutes was spent on admission of this patient, more than half that time was spent in [id number] with the patient during the interview and physical exam. [id number]/[facility] #: [id number] MTDD
--- NOTE | 2017-01-01 08:27 | RAD ---
INDICATION: Shortness of breath. COMPARISON: Chest x-ray dated December 25, 2016 TECHNIQUE: Single AP portable view of the chest was obtained. FINDINGS: Image quality is compromised due to the relative inferiority of a portable chest x-ray. There is been no change in the left upper chest cardiac pacemaker with 2 leads overlying the heart. The heart and mediastinum exhibit normal size and contour. There is been interval worsening of vascular engorgement with the pulmonary vasculature appearing more indistinct and slightly larger than the previous chest x-ray. There is density of securing the bilateral lung bases, worse on the left than the right with left greater than right costophrenic angle blunting. Visualized bones are normal for the patient's age. IMPRESSION: Chest x-ray findings are most consistent with exacerbation of cardiogenic pulmonary edema.
[2017-01-01] MEDS ORDERED: Gabapentin CAP(*) 100 MG PO SCH (09:00)
[2017-01-01] MEDS ORDERED: Spiriva Inhaler DEVICE* 1 EACH DEVICE INH ONE (09:00)
[2017-01-01] MEDS: predniSONE TAB* 10 MG PO SCH (09:14)
[2017-01-01] MEDS: Diltiazem CD CAP* 120 MG PO SCH (09:14)
[2017-01-01] MEDS: Levothyroxine TAB* 100 MCG TAB PO SCH (09:14)
[2017-01-01] MEDS: Gabapentin CAP(*) 100 MG PO SCH ×3 (09:15→20:37)
[2017-01-01] MEDS: Thiamine TAB* 100 MG TAB PO SCH (09:15)
[2017-01-01] MEDS: Hydroxychloroquine TAB* 200 MG PO SCH (09:15)
[2017-01-01] MEDS: Enoxaparin(*) 40 MG/0.4 ML SYR SUBCUT SCH (09:23)
[2017-01-01] MEDS: Morphine INJ* 2 MG/ML 1 ML SYRINGE (TWO MG - NEW SYRINGE VERSION) IV PRN ×2 (09:23→20:37)
[2017-01-01] MEDS: Nystatin SUSPENSION* 100000 UNITS/ML 5 ML UDC SWISH SWAL SCH ×4 (09:23→20:37)
[2017-01-01 10:50] LABS: Hematocrit 37 % (35-47); Hemoglobin 12.5 g/dl (12.0-16.0); Mean Corpuscular HGB Conc 33 g/dl (31-36); Mean Corpuscular Hemoglobin 30 pg (27-31); Mean Corpuscular Volume 90 fL (80-97); Mean Platelet Volume 7 um3 (7.4-10.4); Red Blood Count 4.15 10^6/ul (4.0-5.4); Red Cell Distribution Width 17 % (10.5-15); White Blood Count 10.6 10^3/ul (3.5-10.8)
--- NOTE | 2017-01-01 11:46 | PN ---
Hospitalist Progress Note I saw and examined Ms. Daniel; she is known to me from [facility]. She complains of ongoing shortness of breath, has crackles at b/l bases, and JVP to 10 cm H20. Will start IV lasix now and attempt to diurese more. Of note, her last echo does show worsening valvular disease, which may have contributed to this decompensation. Also, need to have a goals of care discussion with her and her family. Last time I attempted this at [facility], she was unsure what she wanted, and her family was not reachable.
[2017-01-01] MEDS: Tiotropium CAP.INH* CAP.INH/18 MCG (USE ORDER SET !) INH SCH (11:53)
[2017-01-01 15:48] LABS: Free T4 1.3 ng/dL (0.61-1.12)
[2017-01-01 15:52] LABS: Total T3 0.42 ng/mL (0.87-1.78)
[2017-01-02 05:32] LABS: BUN/Creatinine Ratio 16.7 (8-20); Calcium 8.1 mg/dL (8.6-10.3); EGFR African American 78.9 (>60); EGFR Non-African American 61.4 (>60); Potassium 3.8 mmol/L (3.5-5.0)
[2017-01-02] MEDS: Levothyroxine TAB* 100 MCG TAB PO SCH (05:39)
[2017-01-02] MEDS: Enoxaparin(*) 40 MG/0.4 ML SYR SUBCUT SCH (05:39)
[2017-01-02] MEDS: Tiotropium CAP.INH* CAP.INH/18 MCG (USE ORDER SET !) INH SCH (08:11)
[2017-01-02] MEDS: Gabapentin CAP(*) 100 MG PO SCH ×3 (08:19→22:03)
[2017-01-02] MEDS: predniSONE TAB* 10 MG PO SCH (08:20)
[2017-01-02] MEDS: Thiamine TAB* 100 MG TAB PO SCH (08:20)
[2017-01-02] MEDS: Nystatin SUSPENSION* 100000 UNITS/ML 5 ML UDC SWISH SWAL SCH ×4 (08:20→22:05)
[2017-01-02] MEDS: Diltiazem CD CAP* 120 MG PO SCH (08:20)
[2017-01-02] MEDS: Hydroxychloroquine TAB* 200 MG PO SCH (08:20)
--- NOTE | 2017-01-02 11:08 | RAD ---
HISTORY: CT planning for radiation therapy mapping COMPARISONS: CT dated December 28, 2016 TECHNIQUE: Limited axial CT images were obtained of the pelvis for the purposes of radiation treatment planning. FINDINGS: Again noted is an osteolytic lesion of the left inferior pubic ramus and a left pelvic fracture IMPRESSION: LIMITED CT FOR THE PURPOSES OF RADIATION TREATMENT PLANNING
--- NOTE | 2017-01-02 11:39 | PN ---
Subjective Date of Service: 01/02/17 Interval History: Feels much better today. Still with a 2L O2 requirement. She denies shortness of breath, chest pain, or palpitations. She denies pain, nausea, constipation, or diarrhea. Family History: Unchanged from Admission Social History: Unchanged from Admission Past Medical History: Unchanged from Admission Objective Active Medications: Acetaminophen (Tylenol Tab*) 650 mg PO Q4H PRN PRN Reason: FEVER/PAIN Albuterol (Ventolin 2.5 Mg/3 Ml Neb.Bernadette*) 2.5 mg INH Q4H PRN PRN Reason: SOB/WHEEZING Albuterol (Ventolin Hfa Inhaler*) 1 puff INH Q6HR PRN PRN Reason: SHORTNESS OF BREATH Diltiazem HCl (Cardizem Cd Cap*) 120 mg PO DAILY [facility] Last Admin: 01/02/17 08:20 Dose: 120 mg Enoxaparin Sodium (Lovenox(*)) 40 mg SUBCUT Q24H [facility] Last Admin: 01/02/17 05:39 Dose: 40 mg Gabapentin (Neurontin Cap(*)) 100 mg PO TID [facility] Last Admin: 01/02/17 08:19 Dose: 100 mg Hydroxychloroquine Sulfate (Plaquenil Tab*) 200 mg PO DAILY [facility] Last Admin: 01/02/17 08:20 Dose: 200 mg Levothyroxine Sodium (Synthroid Tab*) 100 mcg PO 0600 [facility] Last Admin: 01/02/17 05:39 Dose: 100 mcg Lorazepam (Ativan Tab(*)) 0.5 mg PO Q8H PRN PRN Reason: ANXIETY Morphine Sulfate (Morphine Inj (Syringe)*) 2 mg IV Q4H PRN PRN Reason: PAIN Last Admin: 01/01/17 20:37 Dose: 2 mg Nystatin (Nystatin Suspension*) 500,000 units SWISH SWAL QID [facility] Last Admin: 01/02/17 08:20 Dose: 500,000 units Oxycodone HCl (Roxycodone Tab*) 5 mg PO Q6H PRN PRN Reason: PAIN - MILD Last Admin: 01/01/17 17:36 Dose: 5 mg Prednisone (Deltasone Tab*) 10 mg PO DAILY [facility] Last Admin: 01/02/17 08:20 Dose: 10 mg Thiamine HCl (Vitamin B-1 Tab*) 100 mg PO DAILY [facility] Last Admin: 01/02/17 08:20 Dose: 100 mg Tiotropium [place] (Spiriva Cap.Inh*) 1 cap INH DAILY [facility] Last Admin: 01/02/17 08:11 Dose: 1 cap Vital Signs 01/01/17 01/01/17 01/01/17 11:50 14:05 15:26 Temperature 98.2 F Pulse Rate 90 76 Respiratory 18 20 Rate Blood Pressure 128/53 (mmHg) O2 Sat by Pulse 98 97 Oximetry 01/01/17 01/01/17 01/01/17 16:05 17:36 19:36 Temperature Pulse Rate Respiratory 18 18 14 Rate Blood Pressure (mmHg) O2 Sat by Pulse Oximetry 01/01/17 01/01/17 01/01/17 19:40 20:37 20:42 Temperature 97.3 F Pulse Rate 74 Respiratory 20 18 Rate Blood Pressure 123/48 (mmHg) O2 Sat by Pulse 98 Oximetry 01/01/17 01/01/17 01/02/17 21:37 22:37 00:07 Temperature 97.5 F Pulse Rate 65 Respiratory 14 14 20 Rate Blood Pressure 149/56 (mmHg) O2 Sat by Pulse 100 Oximetry 01/02/17 01/02/17 01/02/17 03:39 08:12 08:19 Temperature 97.7 F Pulse Rate 68 65 Respiratory 20 20 16 Rate Blood Pressure 127/49 (mmHg) O2 Sat by Pulse 100 99 Oximetry 01/02/17 08:20 Temperature 97.8 F Pulse Rate 64 Respiratory 16 Rate Blood Pressure 128/46 (mmHg) O2 Sat by Pulse 100 Oximetry Oxygen Devices in Use Now: Nasal Cannula Appearance: alert, frail, ill appearing Eyes: No Scleral Icterus, PERRLA Ears/Nose/Mouth/Throat: NL Teeth, Lips, Gums, Clear Oropharnyx Neck: NL Appearance and Movements; NL JVP Respiratory: Symmetrical Chest Expansion and Respiratory Effort, - - few crackles L>R Cardiovascular: NL Sounds; No Murmurs; No JVD, RRR Abdominal: NL Sounds; No Tenderness; No Distention, No Hepatosplenomegaly Lymphatic: No Cervical Adenopathy Extremities: No Edema Skin: No Rash or Ulcers Neurological: Alert and Oriented x 3 Result Diagrams: 01/01/17 10:42 01/02/17 04:42 Microbiology and Other Data: Microbiology 01/01/17 10:42 Aerobic Blood Culture - Preliminary Blood Venous No Growth Day 1 Anaerobic Blood Culture - Preliminary No Growth Day 1 01/01/17 06:10 Nasal Screen MRSA (PCR)(PILLO) - Final Nasal Mrsa Negative Assess/Plan/Problems-Billing Assessment: 1. Acute Hypoxic Respiratory Failure Likely due to volume overload due to recent addition of prednisone and lack of lasix, in addition to hypertension. Down 1.8 kg today after one does of IV lasix, however she is still on 2L o2. Will attempt to wean O2 today, and will resume PO lasix 2. Metastatic RCC I attempted to reach her son Jaime for a goals of care discussion, but I could not reach him. I also attempted to have this discussion with him at [facility], but could not reach him then. Rad Onc has ordered a CT pelvis today for radiation planning. 3. Acute on chronic diastolic heart failure As above, likely related to HTN and recent prednisone addition 4. DVT ppx--lovenox sc
[2017-01-02] MEDS: oxyCODONE TAB* 5 MG TAB PO PRN (11:42)
[2017-01-02] MEDS: Furosemide TAB* 20 MG PO SCH (12:17)
[2017-01-02] MEDS: Albuterol HFA INHALER* 8 gm MDI INH PRN (14:05)
[2017-01-03] MEDS: Levothyroxine TAB* 100 MCG TAB PO SCH (05:53)
[2017-01-03] MEDS: Enoxaparin(*) 40 MG/0.4 ML SYR SUBCUT SCH (05:55)
[2017-01-03] MEDS: Albuterol HFA INHALER* 8 gm MDI INH PRN (07:55)
[2017-01-03] MEDS: Tiotropium CAP.INH* CAP.INH/18 MCG (USE ORDER SET !) INH SCH (07:55)
[2017-01-03] MEDS: predniSONE TAB* 10 MG PO SCH (08:14)
[2017-01-03] MEDS: Furosemide TAB* 20 MG PO SCH (08:14)
[2017-01-03] MEDS: oxyCODONE TAB* 5 MG TAB PO PRN (08:14)
[2017-01-03] MEDS: Hydroxychloroquine TAB* 200 MG PO SCH (08:14)
[2017-01-03] MEDS: Gabapentin CAP(*) 100 MG PO SCH ×2 (08:16→13:22)
[2017-01-03] MEDS: Diltiazem CD CAP* 120 MG PO SCH (08:16)
[2017-01-03] MEDS: Thiamine TAB* 100 MG TAB PO SCH (08:16)
[2017-01-03] MEDS: Nystatin SUSPENSION* 100000 UNITS/ML 5 ML UDC SWISH SWAL SCH ×2 (08:17→13:23)
[2017-01-03 08:22] VITALS: BP 118/32
--- NOTE | 2017-01-03 09:22 | RAD ---
HISTORY: Hypoxia COMPARISONS: January 01, 2017 VIEWS: 1: frontal portable view of the chest at 9:06 AM FINDINGS: LINES AND TUBES: A left-sided pacemaker is noted CARDIOMEDIASTINAL SILHOUETTE: The cardiomediastinal silhouette is normal for portable technique. PLEURA: There is blunting of the costophrenic angles bilaterally LUNG PARENCHYMA: There is hyperinflation. There is patchy alveolar opacification of the right lung base ABDOMEN: The upper abdomen is clear. There is no subphrenic gas. BONES AND SOFT TISSUES: No bone or soft tissue abnormalities are noted. IMPRESSION: 1. COPD. 2. SMALL BILATERAL PLEURAL EFFUSIONS. 3. RIGHT BASILAR ATELECTASIS VERSUS CONSOLIDATION
--- NOTE | 2017-01-03 11:36 | RADMED ---
CONTINUATION ADDENDUM NOW INCLUDED ON THIS REPORT AMENDED ADDENDUM REPORT TO CORRECT ACCOUNT NUMBER RADIATION ONCOLOGY INPATIENT CONSULTATION NOTE: DATE OF SERVICE: 01/02/17 - ROOM #448 DIAGNOSIS: Metastatic renal cell carcinoma, performance status ECOG 3. CONTINUATION ADDENDUM: DATE OF CONSULT: 01/02/17 HISTORY OF PRESENT ILLNESS: Gilda Daniel is a 71-year-old woman diagnosed with metastatic renal cell cancer in 2014. She has received systemic therapy with pazopanib and had recent hospital admission with shortness of breath. She has progressive metastatic disease including significant burden of bony mets, and has had difficulty with left hip pain, which has inhibited her ambulation, and she was referred to see me for palliative radiation therapy. She had an additional episode of shortness of breath, and was readmitted to the hospital, and I spoke to Dr. Hunt who asked me to see her as an inpatient. She states that her breathing is back to baseline. When resting in bed, her pain is reasonably well controlled, but she reports significant difficulties with ambulation as well as falls, which she associates with some left hip pain. CT scan of the pelvis obtained on 12/28/16 identified multiple new lytic foci involving the bony pelvis with pathological fracture of the anterior left acetabulum as well as lytic lesion in the inferior pubic ramus with a soft tissue component measuring 2 cm. PAST MEDICAL HISTORY: Metastatic renal cell carcinoma as in the history of present illness, history of anxiety, coronary artery disease, hypertension, lupus, sick sinus syndrome with pacemaker placement. MEDICATIONS: As per the inpatient record. ALLERGIES: I31 TOSITUMOMAB FAMILY HISTORY: Noncontributory. SOCIAL HISTORY: She is a former smoker having quit in the distant past, and does not drink a significant amount of alcohol and drinks alcohol socially. REVIEW OF SYSTEMS: Complete review of systems is obtained from the patient, as documented in the history of present illness, otherwise significant for weakness , fatigue, and her shortness of breath. PHYSICAL EXAM: Vital Signs: Temperature 98.6, pulse rate 69, respiratory rate 18, oxygen saturation 95% on oxygen via nasal cannula, and blood pressure 121/ 41. General: She is awake, alert, and oriented; in no acute distress. Normo- cephalic and atraumatic. Sclerae anicteric. Neck is supple. Full range of motion. Midline trachea. No masses palpable in the neck. Lungs with symmetric air entry bilaterally. Cardiovascular: S1 and S2 regular. Abdomen: Soft and nontender. No masses, no organomegaly. Extremities: No cyanosis, some limited lower extremity edema. Neurologic: Cranial nerves II through XII are intact. Strength is globally weak, but symmetric in proximal and distal muscle groups. Gait and balance not assessed. ASSESSMENT AND PLAN: Ms. Daniel is a 71-year-old woman with progressive metastatic renal cell carcinoma and left hip pain from significant destructive metastatic lesion around the left acetabulum and inferior pubic ramus with pathologic fracture. I did review her history as well as the pathologic and radiographic findings and discussed at some length with the patient, as she is already well informed and familiar. We reviewed the logistics and rationale for palliative radiation therapy for her left hip pain, risks, benefits, and alternatives as well as the acute and long distance operator frequent and uncommon toxicities. I did answer her question to the best of my ability. She is inclined to proceed with palliative radiation therapy as discussed, and did sign informed consent. For her situation, I recommended 2000 cGy at 400 cGy per fraction. She will undergo a CT simulation today to facilitate treatment planning. Tentative treatment start date is 01/03/17. [id number]/CPS #: [id number]/CPS #: [id number] MTDD
--- NOTE | 2017-01-03 11:36 | RADMED ---
INPATIENT CONSULTATION NOTE: * ADDENDUM: DATE OF CONSULT: 01/02/17 DIAGNOSIS: Metastatic renal cell carcinoma. HISTORY OF PRESENT ILLNESS: Gilda Daniel is a 71-year-old woman diagnosed with metastatic renal cell cancer in 2014. She has received systemic therapy with pazopanib and had recent hospital admission with shortness of breath. She has progressive metastatic disease including significant burden of bony mets, and has had difficulty with left hip pain, which has inhibited her ambulation, and she was referred to see me for palliative radiation therapy. She had an additional episode of shortness of breath, and was readmitted to the hospital, and I spoke to Dr. Hunt who asked me to see her as an inpatient. She states that her breathing is back to baseline. When resting in bed, her pain is reasonably well controlled, but she reports significant difficulties with ambulation as well as falls, which she associates with some left hip pain. CT scan of the pelvis obtained on 12/28/16 identified multiple new lytic foci involving the bony pelvis with pathological fracture of the anterior left acetabulum as well as lytic lesion in the inferior pubic ramus with a soft tissue component measuring 2 cm. PAST MEDICAL HISTORY: Metastatic renal cell carcinoma as in the history of present illness, history of anxiety, coronary artery disease, hypertension, lupus, sick sinus syndrome with pacemaker placement. MEDICATIONS: As per the inpatient record. ALLERGIES: I31 TOSITUMOMAB FAMILY HISTORY: Noncontributory. SOCIAL HISTORY: She is a former smoker having quit in the distant past, and does not drink a significant amount of alcohol and drinks alcohol socially. REVIEW OF SYSTEMS: Complete review of systems is obtained from the patient, as documented in the history of present illness, otherwise significant for weakness , fatigue, and her shortness of breath. PHYSICAL EXAM: Vital Signs: Temperature 98.6, pulse rate 69, respiratory rate 18, oxygen saturation 95% on oxygen via nasal cannula, and blood pressure 121/ 41. General: She is awake, alert, and oriented; in no acute distress. Normocephalic and atraumatic. Sclerae anicteric. Neck is supple. Full range of motion. Midline trachea. No masses palpable in the neck. Lungs with symmetric air entry bilaterally. Cardiovascular: S1 and S2 regular. Abdomen: Soft and nontender. No masses, no organomegaly. Extremities: No cyanosis, some limited lower extremity edema. Neurologic: Cranial nerves II through XII are intact. Strength is globally weak, but symmetric in proximal and distal muscle groups. Gait and balance not assessed. ASSESSMENT AND PLAN: Ms. Daniel is a 71-year-old woman with progressive metastatic renal cell carcinoma and left hip pain from significant destructive metastatic lesion around the left acetabulum and inferior pubic ramus with pathologic fracture. I did review her history as well as the pathologic and radiographic findings and discussed at some length with the patient, as she is already well informed and familiar. We reviewed the logistics and rationale for palliative radiation therapy for her left hip pain, risks, benefits, and alternatives as well as the acute and intermediate school teacher frequent and uncommon toxicities. I did answer her question to the best of my ability. She is inclined to proceed with palliative radiation therapy as discussed, and did sign informed consent. For her situation, I recommended 2000 cGy at 400 cGy per fraction. She will undergo a CT simulation today to facilitate treatment planning. Tentative treatment start date is 01/03/17. [id number]/[facility] #: [id number] [facility]
--- NOTE | 2017-01-03 12:30 | DCNOTE ---
Patient seen this afternoon. Reports breathing is significantly improved. Had RT to the pelvis this morning. Discussed metastatic cancer and patient expressed wishes to focus on comfort, states she would not want to return to the hospital again unless symptoms unable to be managed at [facility]. On exam, RRR, s1 and s2 present, no m/g/r, lungs sound clear, maybe a bit diminished in the bases, B/L, no LE edema CXR this AM looks improved. Plan to discharge back to [facility] today on continued PO Lasix. MOLST updated to reflect DNR/DNI/DNH/comfort measures.
--- NOTE | 2017-01-03 13:31 | DS ---
CC: Dr. Hunt; [facility] DATE OF ADMISSION: 01/01/2017. DATE OF DISCHARGE: 01/03/2017. PRIMARY CARE PHYSICIAN: Dr. Hunt. PRINCIPAL DISCHARGE DIAGNOSIS: Acute CHF exacerbation, shortness of breath with a component of anxiety. SECONDARY DIAGNOSES: History of metastatic renal cell carcinoma with mets to the lung, breast, adrenal glands and bone, left pelvic acetabulum fracture, hypertension, systemic lupus erythematosus, history of uterine cancer, history of panic attacks, pacemaker placement status post sick sinus syndrome. DISCHARGE MEDICATION REGIMEN: 1. Lasix 20 mg by mouth daily. 2. Prednisone 10 mg by mouth daily. 3. Gabapentin 100 mg by mouth 3 times daily as needed for pain. 4. Plaquenil 200 mg by mouth daily. 5. Ativan 0.5 mg every 8 hours as needed for anxiety. 6. Synthroid 100 mcg by mouth daily. 7. Imodium 2 mg by mouth every 4 hours as needed for diarrhea. 8. Magnesium 800 mg by mouth 2 times daily. 9. Menthol lozenges one lozenge by mouth every 6 hours as needed for a sore throat. 10. Spiriva one capsule inhaled daily. 11. Oxycodone 5 to 10 mg every 6 hours as needed for pain. 12. Tylenol 650 mg by mouth every 4 hours as needed for pain. 13. Albuterol one puff inhaled every 6 hours as needed for shortness of breath or wheezing. 14. Diltiazem 120 mg by mouth daily. STUDIES DONE DURING HOSPITALIZATION: 1. Chest x-ray: Impression: Chest x-ray findings most consistent with exacerbation of cardiogenic pulmonary edema. 2. CT of the pelvis for simulation: Impression: Limited CT for the purpose of radiation treatment planning. Again noted is an osteolytic lesion of the left inferior pubic ramus and a left pelvic fracture. 3. Repeat chest x-ray, 01/03/2017: Impression: COPD. Small bilateral pleural effusions. Right basilar atelectasis vs. consolidation. HISTORY OF PRESENT ILLNESS AND HOSPITAL SUMMARY: Please see the full history and physical by Dr. Iliana Vazquez for full details. Briefly, Ms. Daniel is a 70-year- old female with a past medical history as above who presented to the hospital just three days after discharge with shortness of breath and respiratory distress. The patient had a respiratory rate in the 30s, however was not hypoxic. She was placed on Vapotherm for comfort. This was able to be weaned off quickly. The patient felt that she had shortness of breath due to anxiety; however, the patient did seem to have some element of fluid overload for this hospitalization. She was given IV Lasix with improvement in her fluid status and respiratory symptoms. While hospitalized, the patient underwent scheduled radiation therapy. It was felt that her outpatient Prednisone, which seems to be prescribed by Oncology due to pain from her metastatic disease, could have been contributing to the fluid overload. This was decreased to 10 mg by mouth daily instead of 30. I had a lengthy discussion with the patient about her cancer diagnosis and prognosis, as well as her repeated hospitalizations as she has been admitted to the hospital three times in the past month. The patient admits that she feels frustrated coming back to the hospital and would prefer to focus on comfort and to try to manage the patient as much as possible at [facility]. Her MOLST form was updated. I attempted to contact her nephew, Jaime Reed, at both his home phone and his cell; however, I was not able to get in touch with him but left a voicemail. I think the patient is appropriate for hospice and recommend an outpatient evaluation to begin the enrollment process. Discussed with Dr. Burgess who stated that she could enroll in hospice after radiation is complete. In the meantime, her symptoms seem to have resolved. She will be discharged on oral Lasix daily and will be discharged back to [facility]. Total time spent on this discharge was 45 minutes. This is a summary of the hospitalization, please see the full medical record for further details. [id number]/[facility] #: [id number] [facility]
== END 2017-01-03 14:45 | DRG 292 ==
LOC: ED 03:16 → MEDTELE 04:31 → OBSVTOIN 01-02 15:00
PROVIDERS: ADMIT Internal Medicine; ATTEND Hospitalist
PROC: DPY87ZZ Contact Radiation of Pelvic Bones (ICD-10-PCS; principal; 2017-01-03)
DX: I11.0 Hypertensive heart disease with heart failure (principal); C78.00 Secondary malignant neoplasm of unspecified lung; C79.51 Secondary malignant neoplasm of bone; C79.71 Secondary malignant neoplasm of right adrenal gland; M84.550A Pathological fracture in neoplastic disease, pelvis, initial encounter for fracture; M32.9 Systemic lupus erythematosus, unspecified; E87.1 Hypo-osmolality and hyponatremia; C64.9 Malignant neoplasm of unspecified kidney, except renal pelvis; C79.81 Secondary malignant neoplasm of breast; C79.89 Secondary malignant neoplasm of other specified sites; C79.72 Secondary malignant neoplasm of left adrenal gland; I50.33 Acute on chronic diastolic (congestive) heart failure; F41.9 Anxiety disorder, unspecified; E03.2 Hypothyroidism due to medicaments and other exogenous substances; M19.90 Unspecified osteoarthritis, unspecified site; G89.29 Other chronic pain; M54.9 Dorsalgia, unspecified; D72.829 Elevated white blood cell count, unspecified; Z66 Do not resuscitate; I25.10 Atherosclerotic heart disease of native coronary artery without angina pectoris; Z79.52 Long term (current) use of systemic steroids; Z90.710 Acquired absence of both cervix and uterus; Z95.0 Presence of cardiac pacemaker; Z91.041 Radiographic dye allergy status; Z80.0 Family history of malignant neoplasm of digestive organs; Z82.49 Family history of ischemic heart disease and other diseases of the circulatory system; Z88.8 Allergy status to other drugs, medicaments and biological substances; Z83.2 Family history of diseases of the blood and blood-forming organs and certain disorders involving the immune mechanism; Z87.891 Personal history of nicotine dependence; Z85.42 Personal history of malignant neoplasm of other parts of uterus
CPT/HCPCS: 36415; 71010; 77014; 80048; 80053; 82550; 82553; 82803; 83605; 83690; 83735; 83880; 84439; 84443; 84479; 84484; 85025; 85610; 85730; 86140; 87040; 87641; 93005; 94640; 94760; A9270-GY; G0378; J1650; J1940; J2270; J2930; J7512

== ENCOUNTER 2017-02-13 22:30 | Emergency (ER) | payer MEDICARE ==
[2017-02-13] MEDS ORDERED: oxyCODONE/Acetamin 5/325 MG* TAB PO ONE (22:55)
--- NOTE | 2017-02-14 02:44 | ED ---
Ulises Pabon Rebecca, scribed for Jayda Younguel on 02/13/17 at 2301 . Upper Extremity Pain - HPI Summary HPI Summary: Pt is a 71 y/o F BIBA who presents to ED c/o R arm pain s/p mechanical fall. Pt reports that at approximately 2100 she fell as she was reaching for cranberry juice. Associated pain is currently severe, ranked 9/10. Sx aggravated by movement, alleviated by nothing. - History of Current Complaint Chief Complaint: EDExtremityUpper Stated Complaint: RT ARM INJURY Time Seen by Provider: 02/13/17 22:40 Hx Obtained From: Patient Mechanism Of Injury: Fall From A Standing Position Onset/Duration: Started Hours Ago, Still Present Severity Currently: Severe Pain Location: Arm - Left Aggravating Factor(s): Movement Alleviating Factor(s): Nothing Associated Signs & Symptoms: Positive: Negative - Allergies/Home Medications Allergies/Adverse Reactions: Allergies Allergy/AdvReac Type Severity Reaction Status Date / Time Iodinated Diagnostic Agents Allergy Rash And Verified 12/25/16 11:14 Itching Prochlorperazine AdvReac Nausea Verified 12/25/16 11:14 [From Compazine] CT CONTRAST Allergy Rash And Uncoded 12/25/16 11:14 Itching PMH/Surg Hx/FS Hx/Imm Hx Endocrine/Hematology History: Reports: Hx Blood Transfusions, Hx Systemic Lupus Erythematosus, Hx Thyroid Disease - hypothyroidism, Hx Anemia Denies: Hx Anticoagulant Therapy, Hx Blood Disorders, Hx Bone Marrow Disease , Hx Diabetes, Hx Sickle Cell Disease, Hx Unexplained Bleeding, Other Endocrine/ Hematological Disorders Cardiovascular History: Reports: Hx Angina, Hx Hypertension Denies: Hx Congestive Heart Failure, Hx Deep Vein Thrombosis, Hx Pacemaker/ ICD Respiratory History: Reports: Hx Pneumonia, Other Respiratory Problems/ Disorders - RENAL AND LUNG CANCER, ON CHEMO Denies: Hx Asthma, Hx Chronic Obstructive Pulmonary Disease (COPD), Hx Pulmonary Embolism GI History: Reports: Hx Hiatal Hernia, Hx Ulcer History: Reports: Other Problems/Disorders - Kidney cancer Denies: Hx Renal Disease Musculoskeletal History: Reports: Hx Arthritis Sensory History: Reports: Hx Cataracts, Hx Contacts or Glasses Denies: Hx Glaucoma, Hx Macular Degeneration, Hx Deafness, Hx Hearing Aid Opthamlomology History: Reports: Hx Cataracts, Hx Contacts or Glasses Denies: Hx Glaucoma, Hx Macular Degeneration Neurological History: Reports: Hx Migraine, Hx Transient Ischemic Attacks (TIA) Denies: Hx Dementia, Hx Seizures, Other Neuro Impairments/Disorders Psychiatric History: Reports: Hx Anxiety, Hx Depression Denies: Hx Panic Disorder, Hx Substance Abuse - Cancer History Cancer Type, Location and Year: RENAL CANCER - W/ METS to lungs Hx Chemotherapy: Yes - current Hx Radiation Therapy: No - Surgical History Surgery Procedure, Year, and Place: HYSTERECTOMY, APPENDECTOMY;VEINOUS LIGATION ; TONSILECTOMY, PACEMAKER Hx Anesthesia Reactions: No Infectious Disease History: No Infectious Disease History: Denies: Hx Clostridium Difficile, Hx Hepatitis, Hx Human Immunodeficiency Virus (HIV), Hx of Known/Suspected MRSA, Hx Shingles, Hx Tuberculosis, Hx Known/ Suspected VRE, Hx Known/Suspected VRSA, Traveled Outside the [place] in Last 30 Days - Family History Known Family History: Positive: Cardiac Disease - Social History Alcohol Use: None Substance Use Type: Reports: None Hx Tobacco Use: No Smoking Status (MU): Former Smoker Type: Cigarettes Amount Used/How Often: 40 YRS Length of Time of Smoking/Using Tobacco: 40 YRS Have You Smoked in the Last Year: No Review of Systems Negative: Fever Positive: Arthralgia - RUE pain s/p mechanical fall All Other Systems Reviewed And Are Negative: Yes Physical Exam - Summary Physical Exam Summary: Appearance: Well appearing, no pain distress Skin: warm, dry, reflects adequate perfusion Head/face: normal Eyes: EOMI, LOUIE ENT: normal Neck: supple, non-tender Respiratory: CTA, breath sounds present Cardiovascular: RRR, pulses symmetrical Abdomen: non-tender, soft Bowel: present Musculoskeletal: Deformed R arm with tenderness and swelling, no neurovascular deficit, ROM restricted in the R arm Neuro: normal, sensory motor intact, A&Ox3 Triage Information Reviewed: Yes Vital Signs On Initial Exam: Initial Vitals Temp Pulse Resp BP Pulse Ox 96.8 F 51 18 138/58 100 02/13/17 22:35 02/13/17 22:35 02/13/17 22:35 02/13/17 22:35 02/13/17 22:35 Vital Signs Reviewed: Yes Procedures - Splinting Location: Right arm - by LAURI Vicente Hand-Made Type: Plaster Splint: Posterior long arm Pre-Proc Neuro Vasc Exam: normal Post-Proc Neuro Vasc Exam: normal, unchanged from pre-exam Diagnostics - Vital Signs Vital Signs Temp Pulse Resp BP Pulse Ox 02/13/17 22:35 96.8 F 51 18 138/58 100 - Laboratory Lab Statement: Any lab studies that have been ordered have been reviewed, and results considered in the medical decision making process. - Radiology Humerus XR Xray Interpretation: No Acute Changes - Fracture of the right humerus Radiology Interpretation Completed By: ED Physician Course/Dx - Course Assessment/Plan: Pt is a 71 y/o F BIBA who presents to ED c/o R arm pain s/p mechanical fall. Pt reports that at approximately 2100 she fell as she was reaching for cranberry juice. Associated pain is currently severe, ranked 9/10. Sx aggravated by movement. Humerus XR reveals a humeral fracture, as read by ED physician. In the ED course, pt received Percocet 5/325. Discussed care of pt with Dr. Joy who recommended a splint and follow up in his office tomorrow morning. Splinting of the arm was done by LAURI Vicente. Pt will be D/C to home with Dx of humeral fracture with a follow up with Orthopedics. Pt is agreeable with this plan. Allergies noted. Pt medications reviewed. - Diagnoses Differential Diagnosis/HQI/PQRI: Positive: Contusion, Fracture (Closed), Strain Provider Diagnoses: Humeral fracture - Physician Notifications Discussed Care of Patient With: Timoteo Joy Time Discussed With Above Provider: 00:51 Instructed by Provider To: Other - Advised a splint and to be discharged home. Discharge - Discharge Plan Condition: Stable Disposition: HOME Patient Education Materials: Arm Fracture in Adults (ED) Referrals: Timoteo Joy MD [Medical Doctor] - Additional Instructions: RETURN TO ED FOR ANY RETURNING OR WORSENING SYMPTOMS. The documentation as recorded by the Ulises velasquez Rebecca accurately reflects the service I personally performed and the decisions made by Hector granger Emmanuel.
[2017-02-14 03:08] VITALS: BP 162/56
[2017-02-14] MEDS ORDERED: oxyCODONE/Acetamin 5/325 MG* TAB PO ONE (03:18)
--- NOTE | 2017-02-14 08:04 | RAD ---
Indication: Right arm pain with obvious deformity after fall 2 views of the right upper arm demonstrates spiral fracture of the distal diaphysis of the humerus. Lateral displacement is noted. IMPRESSION: Spiral displacement distal humerus.
== END 2017-02-14 02:32 | disposition home or self-care (01) ==
LOC: ED 22:30
DX: S42.401A Unspecified fracture of lower end of right humerus, initial encounter for closed fracture (principal); M79.601 Pain in right arm; W19.XXXA Unspecified fall, initial encounter; Y93.9 Activity, unspecified; Y92.9 Unspecified place or not applicable; Z87.891 Personal history of nicotine dependence
CPT/HCPCS: 99283; A9270-GY